=== PATIENT | female | born 1975 | race Caucasian/White ===

== ENCOUNTER 2018-11-03 09:28 | Emergency (ER) | payer SELFPAY ==
[2018-11-03 10:17] LABS: Absolute Lymphocytes (CBC) 0.1 K/uL (0.7-4.9); Absolute Monocytes 0.2 K/uL (0.1-1.3); Absolute Neutrophil 3.7 K/uL (1.8-8.0); Basophils % 0.1 % (0-1.3); Hematocrit 36.1 % (36.0-45.0); Lymphocytes % 2.5 % (15.3-44.8); MPV 8.7 fL (7.6-11.3); Monocytes % 5.6 % (3.3-12.3); RBC Red Blood Cell Count 4.29 M/uL (3.86-4.86)
[2018-11-03] MEDS ORDERED: NA CHLORIDE 0.9% 1,000 ML ONE (10:19)
[2018-11-03] MEDS ORDERED: MEPERIDINE HCL 25 MG/0.5 ML ONE (10:19)
[2018-11-03] MEDS ORDERED: ONDANSETRON 4 MG/2 ML VIAL ONE (10:19)
[2018-11-03 10:33] LABS: Urine Blood NEGATIVE (NEG); Urine Glucose NEGATIVE (NEG); Urine Protein NEGATIVE (NEG); Urine pH 7.5 (5.0-7.0)
[2018-11-03 10:37] LABS: ALT/SGPT 14 U/L (12-78); AST/SGOT 15 U/L (15-37); Albumin 3.7 g/dL (3.4-5.0); Alkaline Phosphatase 42 U/L (45-117); BUN Blood Urea Nitrogen 14 mg/dL (7-18); Bicarbonate 26 mmol/L (21-32); Bilirubin Direct 0.1 mg/dL (0-0.2); Bilirubin Total 0.3 mg/dL (0.2-1.0); Glucose Level 112 mg/dL (74-106); Lipase 183 U/L (73-393); Potassium 3.8 mmol/L (3.5-5.1); Protein, Total 7.1 g/dL (6.4-8.2); Sodium Level 135 mmol/L (136-145)
[2018-11-03 10:59] LABS: Urine Bacteria >50 /HPF (<20); Urine Culture Reflex Order REFLEXED; Urine RBC NONE SEEN /HPF (NONE SEEN)
[2018-11-03 11:32] LABS: Blood Morphology Comment NOT SEEN (NOT SEEN); Platelet Estimate ADEQ; Urine White Blood Cell Casts OK
--- NOTE | 2018-11-03 12:19 | RAD REPORT ---
EXAM DESCRIPTION: CTAbdomen Pelvis W Contrast - 11/03/2018 11:54 am CLINICAL HISTORY: Abdominal pain. ABD PAIN COMPARISON: No comparisons TECHNIQUE: Biphasic CT imaging of the abdomen and pelvis was performed with 100 ml non-ionic IV cont rast. All CT scans are performed using dose optimization technique as appropriate and may include automated exposure control or mA/KV adjustment according to patient size. FINDINGS: The lung bases are clear. The liver, spleen, pancreas, adrenal glands and kidneys are within normal limits. No bowel obstruction, free air, free fluid or abscess. Colon is fluid-filled throughout. The appendix is not identified as a discrete structure, however, no secondary findings of appendicitis are identi fied. No evidence of significant lymphadenopathy. No suspicious bony findings. Mild free fluid is seen in the pelvis with heterogenous uterus. IMPRESSION: A fluid-filled colon is noted which can indicate a mild colitis. Mild pelvic free fluid with heterogenous uterus can be seen in cases of pelvic infection or inflammat ion.
[2018-11-03] MEDS ORDERED: MORPHINE 4 MG/ML SYR ONE ×3 (12:32→15:22)
--- NOTE | 2018-11-03 13:01 | ER ---
Nurse's Notes [facility] Name: Lina Gibson Age: 43 yrs Sex: Female : 1975 Arrival Date: 11/03/2018 Time: 09:32 Bed 16 Private MD: Diagnosis: Left sided colitis without complications Presentation: 11/03 09:40 Presenting complaint: Patient states: Diarrhea and abd cramping that began last night. ss Pt reports this morning it is worse and now she has a headache and nausea. Transition of care: patient was not received from another setting of care. Onset of symptoms was November 02, 2018. Risk Assessment: Do you want to hurt yourself or someone else? Patient reports no desire to harm self or others. Initial Sepsis Screen: Does the patient meet any 2 criteria? No. Patient's initial sepsis screen is negative. Does the patient have a suspected source of infection? No. Patient's initial sepsis screen is negative. Care prior to arrival: None. 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 - Social history:: Smoking status: Patient/guardian denies using tobacco. - Ebola Screening: : Patient denies exposure to infectious person Patient denies travel to an Ebola-affected area in the 21 days before illness onset. - Family history:: not pertinent. - Hospitalizations: : No recent hospitalization is reported. Screenin:00 Abuse screen: Denies threats or abuse. Nutritional screening: No deficits noted. aa5 Tuberculosis screening: No symptoms or risk factors identified. Fall Risk None identified. Assessment: 09:50 General: Appears uncomfortable, Behavior is calm, cooperative. Pain: Complains of pain aa5 in umbilical area and left lower quadrant Pain does not radiate. Pain currently is 9 out of 10 on a pain scale. Quality of pain is described as crampy, Pain began 1 day ago. Is continuous. Neuro: Level of Consciousness is awake, alert, obeys commands, Oriented to person, place, time, situation. Cardiovascular: Heart tones S1 S2 present Rhythm is regular. Respiratory: Airway is patent Respiratory effort is even, unlabored, Respiratory pattern is regular, symmetrical. GI: Abdomen is round non-distended, Bowel sounds present X 4 quads. Abd is soft X 4 quads Abdomen is tender to palpation in left lower quadrant Reports diarrhea, nausea, Patient currently denies bloody stool, vomiting. : No signs and/or symptoms were reported regarding the genitourinary system. EENT: No signs and/or symptoms were reported regarding the EENT system. Derm: Skin is pink, warm \T\ dry. Musculoskeletal: Range of motion: intact in all extremities. 10:10 Reassessment: Patient is alert, oriented x 3, equal unlabored respirations, skin aa5 warm/dry/pink. Pt notified of wait time for lab results and pt currently sitting up in bed drinking CT oral contrast. . 10:25 Reassessment: Pt finished CT oral contrast, CT notified. . aa5 10:29 Reassessment: Patient is alert, oriented x 3, equal unlabored respirations, skin aa5 warm/dry/pink. Patient states feeling better. Pt currently denies nausea and rates pain 2/10 on a pain scale. . General: Appears comfortable. 11:50 Reassessment: Patient is alert, oriented x 3, equal unlabored respirations, skin aa5 warm/dry/pink. Pt taken to CT . 12:20 Reassessment: Patient is alert, oriented x 3, equal unlabored respirations, skin aa5 warm/dry/pink. General: Appears uncomfortable. Pain: Pain currently is 7 out of 10 on a pain scale. 12:35 Reassessment: Patient is alert, oriented x 3, equal unlabored respirations, skin aa5 warm/dry/pink. 12:35 Pain: Pain currently is 2 out of 10 on a pain scale. aa5 13:40 Reassessment: Patient is alert, oriented x 3, equal unlabored respirations, skin aa5 warm/dry/pink. Patient states feeling better. Vital Signs: 09:41 BP 134 / 73; Pulse 101; Resp 15; Temp 98.2; Pulse Ox 99% on R/A; Weight 63.5 kg; Height ss 5 ft. 4 in. (162.56 cm); Pain 9/10; 10:07 BP 119 / 75; Pulse 82; Resp 16 S; Pulse Ox 100% on R/A; aa5 12:20 BP 117 / 68; Pulse 87; Resp 16 S; Pulse Ox 98% on R/A; Pain 7/10; aa5 13:00 BP 111 / 68; Pulse 96; Resp 18 S; Pulse Ox 98% on R/A; aa5 14:00 BP 105 / 61; Pulse 88; Resp 16 S; Pulse Ox 98% on R/A; aa5 09:41 Body Mass Index 24.03 (63.50 kg, 162.56 cm) ED Course: 09:32 Patient arrived in ED. mr 09:41 Triage completed. ss 09:41 Arm band placed on right wrist. 09:50 Patient has correct armband on for positive identification. Placed in gown. Bed in low aa5 position. Call light in reach. Side rails up X2. Adult w/ patient. 09:51 Alexander Casillas MD is Attending Physician. rn 09:57 Cristel Landa RN is Primary Nurse. aa5 10:05 Initial lab(s) drawn, by ia, sent to lab. Inserted saline lock: 20 gauge in right aa5 antecubital area, using aseptic technique. Blood collected. 10:12 Urine collected: clean catch specimen, clear. dh3 11:56 CT Abd/Pelvis - PO and IV Contrast In Process Unspecified. EDMS 14:00 No provider procedures requiring assistance completed. IV discontinued, intact, ch bleeding controlled, No redness/swelling at site. Pressure dressing applied. 14:15 Report given to Vickie Tejada RN. [facility] 15:00 Primary Nurse role handed off by Cristel Landa RN 15:00 Vickie Tejada, RN is Primary Nurse. ch Administered Medications: 10:07 Drug: Zofran 4 mg Route: IVP; Site: right antecubital; aa5 10:15 Follow up: Response: No adverse reaction aa5 10:07 Drug: NS 0.9% 1000 ml Route: IV; Rate: 1000 ml; Site: right antecubital; aa5 11:00 Follow up: IV Status: Completed infusion; IV Intake: 1000ml aa5 10:09 Drug: Demerol 25 mg Route: IVP; Site: right antecubital; aa5 10:15 Follow up: Response: No adverse reaction aa5 12:23 Drug: morphine 4 mg Route: IVP; Site: right antecubital; aa5 12:35 Follow up: Response: No adverse reaction; Pain is decreased aa5 13:10 Drug: Flagyl 500 mg Volume: 100 ml; Route: IVPB; Rate: 200 ml/hr; Infused Over: 30 aa5 mins; Site: right antecubital; 13:40 Follow up: Response: No adverse reaction; IV Status: Completed infusion aa5 14:53 Follow up: IV Status: Completed infusion ch 14:53 Follow up: IV Intake: 100ml ch 13:45 Drug: Cipro 400 mg Volume: 200 ml; Route: IVPB; Infused Over: 60 mins; Site: right aa5 antecubital; 14:00 Follow up: Response: No adverse reaction aa5 14:53 Follow up: IV Status: Completed infusion; IV Intake: 200ml ch 14:53 Drug: morphine 4 mg Route: IVP; Site: left antecubital; ch 15:00 Follow up: Response: No adverse reaction; Marked relief of symptoms ch Intake: 11:00 IV: 1000ml; Total: 1000ml. aa5 14:53 IV: 200ml; Total: 1200ml. ch 14:53 IV: 100ml; Total: 1300ml. Outcome: 13:00 Discharge ordered by . rn 15:10 Discharged to home ambulatory, with family. 15:10 Condition: improved 15:10 Discharge instructions given to patient, family, Instructed on discharge instructions, follow up and referral plans. medication usage, Demonstrated understanding of instructions, follow-up care, medications. 15:19 Patient left the ED. Signatures: Dispatcher [employer] EDMS Vickie Tejada, RN NENA Nikki Whitehead Roman, MD MD rn Calderon, Audri RN Janette Pace RN RN Amanda Chi [facility]
--- NOTE | 2018-11-03 13:01 | EDPHYS ---
Physician Documentation [facility] Name: Lina Gibson Age: 43 yrs Sex: Female : 1975 Arrival Date: 11/03/2018 Time: 09:32 Bed 16 Private MD: ED Physician Alexander Casillas HPI: 11/03 10:05 This 43 yrs old Female presents to ER via Ambulatory with complaints of rn Abdominal Pain, Back Pain, Headache. 10:05 This 43 yrs old Female presents to ER via Ambulatory with complaints of rn Abdominal Pain, diarrhea. 10:05 The patient presents with abdominal pain that is diffuse. Onset: The symptoms/episode rn began/occurred 2 day(s) ago. The symptoms do not radiate. Associated signs and symptoms: Pertinent positives: diarrhea, nausea, Pertinent negatives: dysuria, fever, shortness of breath, vaginal discharge. The symptoms are described as achy, crampy. Modifying factors: The symptoms are alleviated by nothing, the symptoms are aggravated by touching the area. Severity of pain: At its worst the pain was moderate in the emergency department the pain is unchanged. The patient has not experienced similar symptoms in the past. The patient has not recently seen a physician. 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 - Social history:: Smoking status: Patient/guardian denies using tobacco. - Ebola Screening: : Patient denies exposure to infectious person Patient denies travel to an Ebola-affected area in the 21 days before illness onset. - Family history:: not pertinent. - Hospitalizations: : No recent hospitalization is reported. ROS: 10:05 Constitutional: Negative for fever, chills, and weight loss, Eyes: Negative for injury, rn pain, redness, and discharge, Neck: Negative for injury, pain, and swelling, Cardiovascular: Negative for chest pain, palpitations, and edema, Respiratory: Negative for shortness of breath, cough, wheezing, and pleuritic chest pain, Abdomen/GI: + abd pain and diarrhea, + nausea, no blood in stool MS/Extremity: Negative for injury and deformity, Skin: Negative for injury, rash, and discoloration, Neuro: + generalized weakness Exam: 10:05 Constitutional: This is a well developed, well nourished patient who is awake, alert, rn appears uncomfortable, holding empty emesis bag Head/Face: Normocephalic, atraumatic. Eyes: Pupils equal round and reactive to light, extra-ocular motions intact. Lids and lashes normal. Conjunctiva and sclera are non-icteric and not injected. Cornea within normal limits. Periorbital areas with no swelling, redness, or edema. ENT: dry MM Respiratory: No increased work of breathing, no retractions or nasal flaring. Abdomen/GI: soft, tender LUQ and LLQ, no rebound Skin: Warm, dry MS/ Extremity: Pulses equal, no cyanosis. Neurovascular intact. Full, normal range of motion. Equal circumference. Neuro: Awake and alert, GCS 15, oriented to person, place, time, and situation. Cranial nerves II-XII grossly intact. Motor strength 5/5 in all extremities. Sensory grossly intact. Cerebellar exam normal. Vital Signs: 09:41 BP 134 / 73; Pulse 101; Resp 15; Temp 98.2; Pulse Ox 99% on R/A; Weight 63.5 kg; Height ss 5 ft. 4 in. (162.56 cm); Pain 9/10; 10:07 BP 119 / 75; Pulse 82; Resp 16 S; Pulse Ox 100% on R/A; aa5 12:20 BP 117 / 68; Pulse 87; Resp 16 S; Pulse Ox 98% on R/A; Pain 7/10; aa5 13:00 BP 111 / 68; Pulse 96; Resp 18 S; Pulse Ox 98% on R/A; aa5 14:00 BP 105 / 61; Pulse 88; Resp 16 S; Pulse Ox 98% on R/A; aa5 09:41 Body Mass Index 24.03 (63.50 kg, 162.56 cm) ss MDM: 09:51 Patient medically screened. rn 12:58 Differential diagnosis: appendicitis, diverticulitis, non-specific abd pain, colitis. rn Data reviewed: vital signs, nurses notes, lab test result(s), radiologic studies, CT scan, and as a result, I will discharge patient. Counseling: I had a detailed discussion with the patient and/or guardian regarding: the historical points, exam findings, and any diagnostic results supporting the discharge/admit diagnosis, lab results, radiology results, the need for outpatient follow up, to return to the emergency department if symptoms worsen or persist or if there are any questions or concerns that arise at home. Response to treatment: the patient's symptoms have markedly improved after treatment, and as a result, I will discharge patient. Special discussion: Based on the patient's Hx, exam, and Dx evaluation, there is no indication for emergent surgery or inpatient Tx. It is understood by the patient/guardian that if the Sx's persist or worsen they need to return immediately for re-evaluation. I discussed with the patient/guardian in detail that at this point there is no indication for admission to the hospital. It is understood, however, that if the symptoms persist or worsen the patient needs to return immediately for re-evaluation. 11/03 09:58 Order name: Basic Metabolic Panel; Complete Time: 10:54 11/03 09:58 Order name: CBC with Diff; Complete Time: 12:12 11/03 09:58 Order name: Hepatic Function; Complete Time: 10:54 rn 11/03 09:58 Order name: Lipase; Complete Time: 10:54 11/03 10:10 Order name: Urine Dipstick--Ancillary (enter results); Complete Time: 10:54 11/03 10:10 Order name: Urine Microscopic Only; Complete Time: 11:07 eb 11/03 09:58 Order name: CT Abd/Pelvis - PO and IV Contrast; Complete Time: 12:20 rn 11/03 10:10 Order name: Urine --Ancillary (enter results); Complete Time: 10:54 11/03 10:21 Order name: CBC Smear Scan; Complete Time: 12:12 EDMS 11/03 11:02 Order name: Urine Culture EDWI 11/03 09:58 Order name: IV Saline Lock; Complete Time: 10:02 rn 11/03 09:58 Order name: Labs collected and sent; Complete Time: 10:02 rn 11/03 09:58 Order name: Urine Test (obtain specimen); Complete Time: 10:01 rn 11/03 09:58 Order name: Urine Dipstick-Ancillary (obtain specimen); Complete Time: 10:01 rn Administered Medications: 10:07 Drug: Zofran 4 mg Route: IVP; Site: right antecubital; aa5 10:15 Follow up: Response: No adverse reaction aa5 10:07 Drug: NS 0.9% 1000 ml Route: IV; Rate: 1000 ml; Site: right antecubital; aa5 11:00 Follow up: IV Status: Completed infusion; IV Intake: 1000ml aa5 10:09 Drug: Demerol 25 mg Route: IVP; Site: right antecubital; aa5 10:15 Follow up: Response: No adverse reaction aa5 12:23 Drug: morphine 4 mg Route: IVP; Site: right antecubital; aa5 12:35 Follow up: Response: No adverse reaction; Pain is decreased aa5 13:10 Drug: Flagyl 500 mg Volume: 100 ml; Route: IVPB; Rate: 200 ml/hr; Infused Over: 30 aa5 mins; Site: right antecubital; 13:40 Follow up: Response: No adverse reaction; IV Status: Completed infusion [facility] 14:53 Follow up: IV Status: Completed infusion 14:53 Follow up: IV Intake: 100ml 13:45 Drug: Cipro 400 mg Volume: 200 ml; Route: IVPB; Infused Over: 60 mins; Site: right aa5 antecubital; 14:00 Follow up: Response: No adverse reaction [facility] 14:53 Follow up: IV Status: Completed infusion; IV Intake: 200ml 14:53 Drug: morphine 4 mg Route: IVP; Site: left antecubital; 15:00 Follow up: Response: No adverse reaction; Marked relief of symptoms Disposition: 11/03/18 13:00 Discharged to Home. Impression: Left sided colitis without complications. - Condition is Stable. - Discharge Instructions: Colitis. - Prescriptions for Zofran ODT 4 mg Oral tablet,disintegrating - place 1 tablet by TRANSLINGUAL route every 8 hours As needed; 20 tablet. Flagyl 500 mg Oral Tablet - take 1 tablet by ORAL route every 8 hours for 10 days; 30 tablet. Tylenol- Codeine #3 300-30 mg Oral Tablet - take 1 tablet by ORAL route every 6 hours As needed; 20 tablet. Cipro 500 mg Oral Tablet - take 1 tablet by ORAL route every 12 hours for 10 days; 20 tablet. - Work release form, Medication Reconciliation Form, Thank You Letter, Antibiotic Education, Prescription Opioid Use form. - Follow up: Private Physician; When: As needed; Reason: Recheck today's complaints, Re-evaluation by your physician. - Problem is new. - Symptoms have improved. Signatures: Dispatcher [employer] Vickie Mendoza, RN RN Alexander Casillas MD MD rn Calderon, Audri, RN RN aa5 Janette Lan RN RN ss Corrections: (The following items were deleted from the chart) 15:19 13:00 11/03/2018 13:00 Discharged to Home. Impression: Left sided colitis without ch complications. Condition is Stable. Forms are Medication Reconciliation Form, Thank You Letter, Antibiotic Education, Prescription Opioid Use. Follow up: Private Physician; When: As needed; Reason: Recheck today's complaints, Re-evaluation by your physician. Problem is new. Symptoms have improved. rn
[2018-11-03] MEDS ORDERED: CIPROFLOXACIN 400mg IV 400 MG/200 ML BAG IV ONE (13:18)
[2018-11-03] MEDS ORDERED: METRONIDAZOLE 500mg IVPB 500 MG/100 ML BAG IV ONE (13:18)
== END 2018-11-03 15:19 | disposition home or self-care (01) ==
LOC: ER 09:28
DX: K52.9 Noninfective gastroenteritis and colitis, unspecified (principal)
CPT/HCPCS: 36415; 74177; 80048; 80076; 81003; 81015; 81025; 83690; 85025; 87086; 87088; 99284; J0744; J2175; J2405; J7030; Q9967

== ENCOUNTER 2019-05-06 17:17 | Emergency (ER) | payer SELFPAY ==
--- NOTE | 2019-05-06 19:15 | EDPHYS ---
Physician Documentation [facility] Name: Lina Gibson Age: 44 yrs Sex: Female : 1975 Arrival Date: 05/06/2019 Time: 17:19 Bed 11 Private MD: ED Physician Cesario Shepherd HPI: 05/06 19:08 This 44 yrs old Female presents to ER via Ambulatory with complaints of jmm Toothache. 19:08 The patient presents with pain. Onset: The symptoms/episode began/occurred gradually, 2 jmm week(s) ago. Duration: The symptoms are continuous. Modifying factors: The symptoms are alleviated by nothing, the symptoms are aggravated by nothing. Associated signs and symptoms: Pertinent negatives: fever. This is a 44 year old female with no chronic medical conditions that presents to the ED with complaints of toothache which has worsened over the past 2 weeks. Patient states the pain now radiates up her right jaw. . 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 - Social history:: Smoking status: Patient/guardian denies using tobacco. - Ebola Screening: : Patient negative for fever greater than or equal to 101.5 degrees Fahrenheit, and additional compatible Ebola Virus Disease symptoms Patient denies exposure to infectious person Patient denies travel to an Ebola-affected area in the 21 days before illness onset No symptoms or risks identified at this time. ROS: 19:08 Constitutional: Negative for fever, chills, and weight loss, Cardiovascular: Negative jmm for chest pain, palpitations, and edema, Respiratory: Negative for shortness of breath, cough, wheezing, and pleuritic chest pain. 19:08 ENT: Positive for dental pain. 19:08 All other systems are negative. Exam: 19:08 Constitutional: This is a well developed, well nourished patient who is awake, alert, jmm and in no acute distress. Head/Face: atraumatic. Eyes: EOMI, no conjunctival erythema appreciated ENT: Moist Mucus Membranes Neck: Trachea midline, Supple Chest/axilla: Normal chest wall appearance and motion. Cardiovascular: Regular rate and rhythm. No edema appreciated Respiratory: Normal respirations, no respiratory distress appreciated Abdomen/GI: Non distended, soft Back: Normal ROM Skin: General appearance color normal MS/ Extremity: Moves all extremities, no obvious deformities appreciated, no edema noted to the lower extremities Neuro: Awake and alert, normal gait Psych: Behavior is normal, Mood is normal, Patient is cooperative and pleasant 19:08 Head/face: 19:08 ENT: Dental exam: dental caries, that is severe, specifically in the lower right first bicuspid (#28) and lower right first molar (#30). Vital Signs: 17:47 BP 149 / 99; Pulse 88; Resp 18; Temp 98.1; Pulse Ox 100% on R/A; Weight 65.77 kg; sg Height 5 ft. 5 in. (165.10 cm); Pain 10/10; 17:47 Body Mass Index 24.13 (65.77 kg, 165.10 cm) sg MDM: 18:57 Patient medically screened. [facility] 19:08 Data reviewed: vital signs, nurses notes. Counseling: I had a detailed discussion with [facility] the patient and/or guardian regarding: the historical points, exam findings, and any diagnostic results supporting the discharge/admit diagnosis, the need for outpatient follow up, to return to the emergency department if symptoms worsen or persist or if there are any questions or concerns that arise at home. ED course: No submandibular swelling appreciated. I do not suspect ludwigs. Patient is advised to follow up with Dentist. Patient is given strict return precautions. Patient understood and agrees with the plan of care. . Administered Medications: No medications were administered Disposition: 05/07 08:53 Co-signature as Attending Physician, Cesario Shepherd MD I agree with the assessment and kdr plan of care. Disposition: 05/06/19 19:14 Discharged to Home. Impression: Dental caries. - Condition is Stable. - Discharge Instructions: Dental Pain. - Prescriptions for Amoxicillin 875 mg Oral Tablet - take 1 tablet by ORAL route every 12 hours for 10 days; 20 tablet. Ultracet 37.5- 325 mg Oral Tablet - take 1 tablet by ORAL route every 6 hours - for up to 5 days; do not exceed 8 tablets per day.; 12 tablet. - Medication Reconciliation Form, Thank You Letter, Antibiotic Education, Prescription Opioid Use form. - Follow up: Private Physician; When: 2 - 3 days; Reason: Recheck today's complaints, Continuance of care, Re-evaluation by your physician. Signatures: Trey Garcia RN RN sg Rittger, Kevin, MD MD kdr Mickail, Joel, PA PA jmm Corrections: (The following items were deleted from the chart) 05/06 19:39 19:14 05/06/2019 19:14 Discharged to Home. Impression: Dental caries. Condition is sg Stable. Forms are Medication Reconciliation Form, Thank You Letter, Antibiotic Education, Prescription Opioid Use. Follow up: Private Physician; When: 2 - 3 days; Reason: Recheck today's complaints, Continuance of care, Re-evaluation by your physician. rossy
--- NOTE | 2019-05-06 19:15 | ER ---
Nurse's Notes [facility] Name: Lina Gibson Age: 44 yrs Sex: Female : 1975 Arrival Date: 05/06/2019 Time: 17:19 Bed 11 Private MD: Diagnosis: Dental caries Presentation: 05/06 17:48 Presenting complaint: Patient states: right sided jaw pain, upper and lower at times, sg unsure if the pain is on top or bottom per patient, pain affects entire right side of jaw and face, reports having tied to wait for tomorrow to schedule a dental appointment but due to the pain was unable to wait. Transition of care: patient was not received from another setting of care. Onset of symptoms was May 06, 2019. Risk Assessment: Do you want to hurt yourself or someone else? Patient reports no desire to harm self or others. Initial Sepsis Screen: Does the patient meet any 2 criteria? No. Patient's initial sepsis screen is negative. Does the patient have a suspected source of infection? No. Patient's initial sepsis screen is negative. Care prior to arrival: None. 17:48 Method Of Arrival: Ambulatory sg 17:48 Acuity: JOVANNI 4 sg Triage Assessment: 18:40 EENT: Reports pain. 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 - Social history:: Smoking status: Patient/guardian denies using tobacco. - Ebola Screening: : Patient negative for fever greater than or equal to 101.5 degrees Fahrenheit, and additional compatible Ebola Virus Disease symptoms Patient denies exposure to infectious person Patient denies travel to an Ebola-affected area in the 21 days before illness onset No symptoms or risks identified at this time. Screenin:55 Abuse screen: Denies threats or abuse. Denies injuries from another. Nutritional iw screening: No deficits noted. Tuberculosis screening: No symptoms or risk factors identified. Fall Risk None identified. Assessment: 18:54 General: Appears in no apparent distress. comfortable, Behavior is calm, cooperative. iw Pain: Complains of pain in right cheek and right jaw. Neuro: Level of Consciousness is awake, alert, obeys commands, Oriented to person, place, time, situation. Cardiovascular: Capillary refill < 3 seconds in bilateral fingers Patient's skin is warm and dry. EENT: Derm: Skin is intact, is healthy with good turgor. Musculoskeletal: Range of motion: intact in all extremities. 19:30 Reassessment: Patient appears in no apparent distress at this time. pt sitting in sg recliner at this time, eyes closed, resp even and unlabored, pt educated on discharge instructions, pt to be dc to home. Vital Signs: 17:47 BP 149 / 99; Pulse 88; Resp 18; Temp 98.1; Pulse Ox 100% on R/A; Weight 65.77 kg; sg Height 5 ft. 5 in. (165.10 cm); Pain 10/10; 17:47 Body Mass Index 24.13 (65.77 kg, 165.10 cm) ED Course: 17:19 Patient arrived in ED. mr 17:49 Triage completed. sg 17:49 Arm band placed on. sg 18:41 Emilia Chou, RN is Primary Nurse. iw 18:42 Stanton Selby PA is PHCP. [facility] 18:43 Cesario Shepherd MD is Attending Physician. [facility] 18:50 Patient has correct armband on for positive identification. Bed in low position. Call sg light in reach. Pulse ox on. NIBP on. 18:55 No provider procedures requiring assistance completed. Patient did not have IV access iw during this emergency room visit. Administered Medications: No medications were administered Outcome: 19:14 Discharge ordered by MD. [facility] 19:30 Discharged to home ambulatory, with family. sg 19:30 Condition: good 19:30 Discharge instructions given to patient, Instructed on discharge instructions, follow up and referral plans. no drinking with medication, no driving heavy equipment, medication usage, safety practices, Demonstrated understanding of instructions, follow-up care, medications, Prescriptions given X 2. 19:39 Patient left the ED. sg Signatures: Trey Garcia RN RN Stanton Selby PA PA jmm Rivera, Mary mr Emilia Chou RN RN iw
[2019-05-06 22:41] VITALS: BP 149/99; TEMP 98.1; O2SAT 100
== END 2019-05-06 19:39 | disposition home or self-care (01) ==
LOC: ER 17:17
DX: K02.9 Dental caries, unspecified (principal)
CPT/HCPCS: 99283

== ENCOUNTER 2020-03-23 20:34 | Emergency (ER) | payer SELFPAY ==
[2020-03-23] MEDS ORDERED: NA CHLORIDE 0.9% 1,000 ML ONE (21:20)
[2020-03-23] MEDS ORDERED: MORPHINE 2 MG/ML SYR ONE (21:20)
[2020-03-23] MEDS ORDERED: FAMOTIDINE 20 MG/2 ML VIAL IV ONE (21:20)
[2020-03-23] MEDS ORDERED: ONDANSETRON 4 MG/2 ML VIAL ONE (21:20)
[2020-03-23 21:21] LABS: Absolute Lymphocytes (CBC) 1.3 K/uL (0.7-4.9); Basophils % 0.9 % (0-1.3); Hematocrit 29.9 % (36.0-45.0); Lymphocytes % 19.4 % (15.3-44.8); MPV 8.2 fL (7.6-11.3); RBC Red Blood Cell Count 4.11 M/uL (3.86-4.86)
[2020-03-23 21:28] LABS: ALT/SGPT 13 U/L (12-78); AST/SGOT 13 U/L (15-37); Albumin 3.5 g/dL (3.4-5.0); Alkaline Phosphatase 68 U/L (45-117); BUN Blood Urea Nitrogen 8 mg/dL (7-18); Bicarbonate 26 mmol/L (21-32); Bilirubin Direct < 0.1 mg/dL (0-0.2); Bilirubin Total 0.3 mg/dL (0.2-1.0); Glucose Level 84 mg/dL (74-106); Lipase 100 U/L (73-393); Potassium 3.8 mmol/L (3.5-5.1); Protein, Total 7.1 g/dL (6.4-8.2); Sodium Level 137 mmol/L (136-145)
--- NOTE | 2020-03-23 23:26 | EDPHYS ---
Physician Documentation [facility] Name: Lina Gibson Age: 44 yrs Sex: Female : 1975 Arrival Date: 03/23/2020 Time: 20:35 Bed 4 Private MD: ED Physician Jasbir Sevilla HPI: 03/23 21:10 This 44 yrs old Female presents to ER via Ambulatory with complaints of cp Abdominal Pain. 21:10 The patient presents with abdominal pain in the epigastric area. cp 21:10 Onset: The symptoms/episode began/occurred 2 day(s) ago, and became worse today. cp 21:10 The symptoms do not radiate. Associated signs and symptoms: Pertinent positives: cp nausea, Pertinent negatives: chest pain, constipation, diarrhea, dysuria, fever, palpitations, vomiting. The symptoms are described as sharp. Modifying factors: the symptoms are aggravated by pressure. 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 - Social history:: Smoking status: Patient denies any tobacco usage or history of. ROS: 21:15 Constitutional: Negative for body aches, chills, fever, poor PO intake. cp 21:15 Eyes: Negative for injury, pain, redness, and discharge. cp 21:15 ENT: Negative for ear pain, sore throat, difficulty swallowing, difficulty handling secretions. 21:15 Cardiovascular: Negative for chest pain, edema, palpitations. 21:15 Respiratory: Negative for cough, shortness of breath, wheezing. 21:15 Abdomen/GI: Positive for abdominal pain, nausea, of the epigastric area, Negative for vomiting, diarrhea, constipation, anorexia, dysphagia, black/tarry stool, rectal bleeding. 21:15 Back: Negative for radiated pain. 21:15 : Negative for urinary symptoms. 21:15 Neuro: Negative for altered mental status, headache, syncope, weakness. 21:15 All other systems are negative. Exam: 21:25 Constitutional: The patient appears in no acute distress, alert, awake, cp non-diaphoretic, non-toxic, well developed, well nourished, uncomfortable. 21:25 Head/Face: Normocephalic, atraumatic. cp 21:25 Eyes: Periorbital structures: appear normal, Conjunctiva: normal, no exudate, no injection, Sclera: no appreciated abnormality, Lids and lashes: appear normal, bilaterally. 21:25 ENT: External ear(s): are unremarkable, Nose: is normal, Mouth: Lips: moist, Oral mucosa: pink and intact, moist, Posterior pharynx: Airway: no evidence of obstruction, patent. 21:25 Chest/axilla: Inspection: normal, Palpation: is normal, no crepitus, no tenderness. 21:25 Cardiovascular: Rate: normal, Rhythm: regular. 21:25 Respiratory: the patient does not display signs of respiratory distress, Respirations: normal, no use of accessory muscles, no retractions, labored breathing, is not present, Breath sounds: are clear throughout, no decreased breath sounds. 21:25 Abdomen/GI: Inspection: abdomen appears normal, Bowel sounds: active, all quadrants, Palpation: soft, in all quadrants, moderate abdominal tenderness, in the epigastric area, rebound tenderness, is not appreciated, voluntary guarding, is elicited in the epigastric area. 21:25 Back: CVA tenderness, is absent. 21:25 Skin: no rash present. 21:25 Neuro: Orientation: to person, place \T\ time. Mentation: is normal, Motor: moves all fours, strength is normal. Vital Signs: 20:42 BP 122 / 77; Pulse 81; Resp 17; Temp 97.8; Pulse Ox 100% ; Weight 74.84 kg; Height 5 ll1 ft. 4 in. (162.56 cm); Pain 7/10; 21:45 BP 125 / 85; Pulse 80; Resp 18; Pulse Ox 100% on R/A; rv 22:11 Pain 1/10; rv 23:00 BP 118 / 84; Pulse 78; Resp 18; Pulse Ox 99% on R/A; wh 20:42 Body Mass Index 28.32 (74.84 kg, 162.56 cm) ll1 MDM: 20:51 Patient medically screened. cp 21:00 Differential diagnosis: cholecystitis, Cholelithiasis, gastroesophageal reflux disease, cp GI Bleed, non-specific abd pain, pancreatitis, Peptic Ulcer Disease, Perf. Duodenal Ulcer, Perf. Gastric Ulcer. 23:25 Data reviewed: vital signs, nurses notes, lab test result(s), radiologic studies, CT cp scan, ultrasound. 23:25 Counseling: I had a detailed discussion with the patient and/or guardian regarding: the cp historical points, exam findings, and any diagnostic results supporting the discharge/admit diagnosis, lab results, radiology results, the need for outpatient follow up, a family practitioner, to return to the emergency department if symptoms worsen or persist or if there are any questions or concerns that arise at home. Response to treatment: the patient's symptoms have markedly improved after treatment, VSS. Pain and nausea improved. Will discharge to home for continued monitoring. Special discussion: Based on the patient's Hx, exam, and Dx evaluation, there is no indication for emergent surgery or inpatient Tx. It is understood by the patient/guardian that if the Sx's persist or worsen they need to return immediately for re-evaluation. 03/23 20:50 Order name: Basic Metabolic Panel; Complete Time: 21:33 rv 03/23 21:34 Interpretation: Normal except: GFR 87; CA 10.2. cp 03/23 20:50 Order name: CBC with Diff; Complete Time: 21:28 rv 03/23 21:28 Interpretation: Normal except: HGB 9.9; HCT 29.9; MCV 72.8; MCH 24.2; RDW 18.1. cp 03/23 20:50 Order name: Hepatic Function; Complete Time: 21:33 rv 03/23 21:34 Interpretation: Normal except: AST 13; GLOB 3.6; A/G 1.0. cp 03/23 20:50 Order name: Lipase; Complete Time: 21:33 rv 03/23 21:04 Order name: US Abdomen Limited: RUQ/epigastric area cp 03/23 21:41 Order name: CT Abd/Pelvis - IV Contrast Only cp 03/23 20:50 Order name: IV Saline Lock; Complete Time: 20:57 rv 03/23 20:50 Order name: Labs collected and sent; Complete Time: 20:57 rv 03/23 21:04 Order name: NPO; Complete Time: 21:15 cp Administered Medications: 21:12 Drug: Pepcid 20 mg Route: IVP; Site: right antecubital; rv 22:12 Follow up: Response: No adverse reaction rv 21:12 Drug: morphine 2 mg Route: IVP; Site: right antecubital; rv 22:11 Follow up: Pain 06/08 Adult; Response: No adverse reaction; Marked relief of symptoms; rv Pain is decreased; RASS: Alert and Calm (0) 21:13 Drug: Zofran (Ondansetron) 4 mg Route: IVP; Site: right antecubital; rv 22:12 Follow up: Response: No adverse reaction rv 21:14 Drug: NS 0.9% 1000 ml Route: IV; Rate: 1 bolus; Site: right antecubital; rv 22:12 Follow up: IV Status: Completed infusion; IV Intake: 1000ml rv Disposition: 03/24 00:50 Co-signature as Attending Physician, Jasbir Sevilla MD. [email or web address] Disposition: 03/23/20 23:26 Discharged to Home. Impression: Epigastric pain. - Condition is Stable. - Discharge Instructions: Abdominal Pain, Adult. - Prescriptions for Protonix 40 mg Oral Tablet - take 1 tablet by ORAL route once daily; 30 tablet. Zofran 4 mg Oral Tablet - take 1 tablet by ORAL route every 12 hours As needed; 20 tablet. - Medication Reconciliation Form, Thank You Letter, Antibiotic Education, Prescription Opioid Use form. - Follow up: Private Physician; When: 1 - 2 days; Reason: Recheck today's complaints. - Problem is new. - Symptoms have improved. Signatures: Dispatcher [employer] EDMS Eddie Garcia PA PA cp Lucas Mustafa Antelmo Sandoval RN RN Yoon Barron RN RN [facility] Jasbir Sevilla MD MD [email or web address] Corrections: (The following items were deleted from the chart) 03/23 21:34 21:34 Normal except: GFR 87. cp cp 23:33 23:26 03/23/2020 23:26 Discharged to Home. Impression: Epigastric pain. Condition is wh Stable. Forms are Medication Reconciliation Form, Thank You Letter, Antibiotic Education, Prescription Opioid Use. Follow up: Private Physician; When: 1 - 2 days; Reason: Recheck today's complaints. Problem is new. Symptoms have improved. cp
--- NOTE | 2020-03-23 23:26 | ER ---
Nurse's Notes [facility] Name: Lina Gibson Age: 44 yrs Sex: Female : 1975 Arrival Date: 03/23/2020 Time: 20:35 Bed 4 Private MD: Diagnosis: Epigastric pain Presentation: 03/23 20:42 Chief complaint: Patient states: Epigastric pain with nausea for 2 days. No fever. ll1 Coronavirus screen: Client denies travel out of the [place] in the last 14 days. At this time, the client does not indicate any symptoms associated with coronavirus-19. Ebola Screen: Patient denies travel to an Ebola-affected area in the 21 days before illness onset. Initial Sepsis Screen: Does the patient meet any 2 criteria? No. Patient's initial sepsis screen is negative. Does the patient have a suspected source of infection? Yes: Acute abdominal pain. Risk Assessment: Do you want to hurt yourself or someone else? Patient reports no desire to harm self or others. Onset of symptoms was March 22, 2020. 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 - Social history:: Smoking status: Patient denies any tobacco usage or history of. Screenin:58 Abuse screen: Denies threats or abuse. Denies injuries from another. Nutritional rv screening: No deficits noted. Tuberculosis screening: No symptoms or risk factors identified. Fall Risk None identified. Assessment: 20:57 General: Appears uncomfortable, Behavior is calm, cooperative. Pain: Complains of pain rv in epigastric area Pain currently is 7 out of 10 on a pain scale. Quality of pain is described as burning. Neuro: Level of Consciousness is awake, alert, obeys commands, Oriented to person, place, time, situation. Cardiovascular: Patient's skin is warm and dry. Respiratory: Airway is patent Respiratory effort is even, unlabored, Breath sounds are clear bilaterally. GI: Bowel sounds present X 4 quads. Abd is soft and non tender X 4 quads. Reports upper abdominal pain, nausea. Derm: Skin is intact. 22:13 Reassessment: Patient denies pain at this time. Patient states feeling better. Patient rv states symptoms have improved. Neuro: Level of Consciousness is awake, alert, obeys commands, Oriented to person, place, time, situation. GI: Patient currently denies abdominal pain, nausea. 23:31 Reassessment: Patient appears in no apparent distress at this time. Patient and/or wh family updated on plan of care and expected duration. Pain level reassessed. Patient is alert, oriented x 3, equal unlabored respirations, skin warm/dry/pink. Vital Signs: 20:42 BP 122 / 77; Pulse 81; Resp 17; Temp 97.8; Pulse Ox 100% ; Weight 74.84 kg; Height 5 ll1 ft. 4 in. (162.56 cm); Pain 7/10; 21:45 BP 125 / 85; Pulse 80; Resp 18; Pulse Ox 100% on R/A; rv 22:11 Pain 1/10; rv 23:00 BP 118 / 84; Pulse 78; Resp 18; Pulse Ox 99% on R/A; wh 20:42 Body Mass Index 28.32 (74.84 kg, 162.56 cm) ll1 ED Course: 20:35 Patient arrived in ED. cl3 20:43 Triage completed. ll1 20:43 Arm band placed on Patient placed in an exam room, on a stretcher. ll1 20:45 Eddie Garcia PA is PHCP. cp 20:45 Jasbir Sevilla MD is Attending Physician. cp 20:50 Antelmo Sandoval, NENA is Primary Nurse. rv 20:57 Initial lab(s) drawn, by wv, sent to lab. Inserted saline lock: 20 gauge in right rv antecubital area, using aseptic technique. Blood collected. 20:58 Patient has correct armband on for positive identification. Pulse ox on. NIBP on. rv 21:46 US Abdomen Limited: RUQ/epigastric area In Process Unspecified. EDMS 21:47 Ultrasound completed. Patient tolerated well. 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 sg3 22:11 No provider procedures requiring assistance completed. rv 22:38 CT Abd/Pelvis - IV Contrast Only In Process Unspecified. EDMS 23:33 IV discontinued, intact, bleeding controlled, No redness/swelling at site. wh Administered Medications: 21:12 Drug: Pepcid 20 mg Route: IVP; Site: right antecubital; rv 22:12 Follow up: Response: No adverse reaction rv 21:12 Drug: morphine 2 mg Route: IVP; Site: right antecubital; rv 22:11 Follow up: Pain 06/08 Adult; Response: No adverse reaction; Marked relief of symptoms; rv Pain is decreased; RASS: Alert and Calm (0) 21:13 Drug: Zofran (Ondansetron) 4 mg Route: IVP; Site: right antecubital; rv 22:12 Follow up: Response: No adverse reaction rv 21:14 Drug: NS 0.9% 1000 ml Route: IV; Rate: 1 bolus; Site: right antecubital; rv 22:12 Follow up: IV Status: Completed infusion; IV Intake: 1000ml rv Intake: 22:12 IV: 1000ml; Total: 1000ml. rv Outcome: 23:26 Discharge ordered by . 23:32 Discharged to home ambulatory. 23:32 Condition: stable 23:32 Discharge instructions given to patient, Instructed on discharge instructions, follow up and referral plans. medication usage, POC Demonstrated understanding of instructions, follow-up care, medications, POC Prescriptions given X 2. 23:33 Patient left the ED. Signatures: Dispatcher [employer] EDMS Eddie Garcia PA PA cp Habalo, Winsy Emperatriz Brian sg3 Antelmo Sandoval RN RN Kushal Oliveros clYoon Luis RN RN ll1
[2020-03-23 23:57] VITALS: TEMP 97.8
[2020-03-24 00:32] VITALS: BP 118/84; O2SAT 99
--- NOTE | 2020-03-24 08:25 | RAD REPORT ---
EXAM DESCRIPTION: US - Abdomen Exam Limited - 03/23/2020 9:46 pm CLINICAL HISTORY: ABD PAIN COMPARISON: No comparisons FINDINGS: The gallbladder demonstrates no gallstones. No pericholecystic fluid or gallbladder wall t hickening. The common bile duct is normal measuring 5 mm. The liver demonstrates no findings of intrahepatic biliary dilatation. IMPRESSION: Unremarkable examination.
--- NOTE | 2020-03-24 10:41 | RAD REPORT ---
EXAM DESCRIPTION: CT Abdomen and Pelvis With Intravenous Contrast CLINICAL HISTORY: The patient is 44 years old and is Female; ABD PAIN TECHNIQUE: Axial computed tomography images of the abdomen and pelvis with intravenous contrast. S agittal and coronal reformatted images were created and reviewed. This CT exam was performed using one or more of the following dose reduction techniques: automated exposure control, adjustment of t he mA and/or kV according to patient size, and/or use of iterative reconstruction technique. COMPARISON: CT of the abdomen and pelvis November 03, 2018 FINDINGS: LUNG BASES: Unremarkable. No mass. No consolidation. ABDOMEN: LIVER: Unremarkable. No mass. GALLBLADDER AND BILE DUCTS: The gallbladder is contracted. PANCREAS: No ductal dilation. No mass. SPLEEN: Unremarkable. ADRENALS: Unremarkable. No mass. KIDNEYS AND URETERS: Unremarkable. The kidneys enhance symmetrically. No obstructing renal or ur eteral calculus is seen. No hydronephrosis or hydroureter. No perinephric fluid or stranding. STOMACH AND BOWEL: The stomach is decompressed. The small bowel is normal in caliber. A moderate amount stool is present throughout colon. There is no mucosal thickening or evidence of bowel obstru ction. PELVIS: APPENDIX: No findings to suggest acute appendicitis. BLADDER: The bladder is well distended. REPRODUCTIVE: Unremarkable as visualized. ABDOMEN and PELVIS: INTRAPERITONEAL SPACE: Unremarkable. No free air. No significant fluid collection. BONES/JOINTS: No acute fracture. SOFT TISSUES: The soft tissues are normal. VASCULATURE: A few calcified phleboliths are present within the pelvis which is likely physiolog ic. The vascular structures are normal in course and caliber. No abdominal aortic aneurysm. LYMPH NODES: Unremarkable. No enlarged lymph nodes. IMPRESSION: No acute findings on this contrasted CT of the abdomen and pelvis to explain the patient 's symptoms. Electronically signed by: Magda Hill MD 03/23/2020 10:51 PM CDT Due to temporary technical issues with the PACS/Fluency reporting system, reports are being signed by the in house radiologist without review as a courtesy to ensure prompt reporting. The interpreting r adiologist is fully responsible for the content of the report.
== END 2020-03-23 23:33 | disposition home or self-care (01) ==
LOC: ER 20:34
DX: R10.13 Epigastric pain (principal)
CPT/HCPCS: 36415; 74177; 76705; 80048; 80076; 83690; 85025; 96361; 96374; 96375; 99284; J2270; J2405; J7030; Q9967

== ENCOUNTER 2021-01-23 22:33 | Emergency (ER) | payer SELFPAY ==
[2021-01-24] MEDS ORDERED: ACETAMINOPHEN 325 MG TABLET ONE (01:46)
[2021-01-24] MEDS ORDERED: NA CHLORIDE 0.9% 500 ML ONE (01:47)
[2021-01-24] MEDS ORDERED: MORPHINE 2 MG/ML SYR ONE (01:47)
[2021-01-24] MEDS ORDERED: ONDANSETRON 4 MG/2 ML VIAL ONE (01:47)
[2021-01-24] MEDS ORDERED: dexAMETHasone 10 MG/ML VIAL ONE (01:47)
--- NOTE | 2021-01-24 05:36 | RAD REPORT ---
EXAM DESCRIPTION: CT - Chest For Pe Angio - 01/24/2021 1:52 am CLINICAL HISTORY: Chest pain. SOB COMPARISON: Ankle Right 3 View dated 10/26/2013 TECHNIQUE: CT angiogram of the pulmonary arteries was performed with MIP. All CT scans are performed using dose optimization technique as appropriate and may include automated exposure control or mA/KV adjustment according to patient size. FINDINGS: No evidence of pulmonary thromboembolism. No acute aortic finding demonstrated. Subtle groundglass opacity bilaterally may indicate mild developing viral infection. No significant pericardial or pleural fluid. No concerning bony finding. IMPRESSION: No evidence of pulmonary thromboembolism.
--- NOTE | 2021-01-24 05:47 | ER ---
Nurse's Notes [facility] Name: Lina Gibson Age: 45 yrs Sex: Female : 1975 Arrival Date: 01/23/2021 Time: 22:38 Bed 7 Private MD: Diagnosis: Pneumonia due to SARS-associated coronavirus Presentation: 01/23 23:15 Chief complaint: Patient states: headache 3-4 days and sore throat, also reports cough, em shortness of breath and occasional chest pain, daughter tested positive for covid last week. Coronavirus screen: Vaccine status: Patient reports receiving the 1st dose of the Covid vaccine. cough unrelated to allergies, difficulty breathing, Client presents with at least one sign or symptom that may indicate coronavirus-19. Standard/surgical mask placed on the client. Provider contacted for isolation considerations. Ebola Screen: Patient negative for fever greater than or equal to 101.5 degrees Fahrenheit, and additional compatible Ebola Virus Disease symptoms Patient denies exposure to infectious person. Patient denies travel to an Ebola-affected area in the 21 days before illness onset. No symptoms or risks identified at this time. Initial Sepsis Screen: Does the patient meet any 2 criteria? HR > 90 bpm. No. Patient's initial sepsis screen is negative. Does the patient have a suspected source of infection? No. Patient's initial sepsis screen is negative. Risk Assessment: Do you want to hurt yourself or someone else? Patient reports no desire to harm self or others. Onset of symptoms was January 23, 2021. 23:15 Method Of Arrival: Ambulatory em 23:15 Acuity: JOVANNI 4 em Triage Assessment: 23:15 General: Appears in no apparent distress. uncomfortable, ill, Behavior is calm, em cooperative. Pain: Complains of pain in head and throat Pain currently is 8 out of 10 on a pain scale. Neuro: Level of Consciousness is awake, alert, Oriented to person, place, time, situation. Cardiovascular: Capillary refill < 3 seconds Patient's skin is warm and dry. Respiratory: Reports cough that is Airway is patent Respiratory effort is even, unlabored, Respiratory pattern is regular, symmetrical, Onset: The symptoms/episode began/occurred 3-4 days. Derm: Skin is intact, is healthy with good turgor, Skin is pink, warm \T\ dry. Musculoskeletal: Capillary refill < 3 seconds, Range of motion: intact in all extremities. Historical: - Allergies: 23:17 No Known Allergies; em - PMHx: 23:17 None; em - PSHx: 23:17 None; em - Immunization history:: Client reports receiving the 1st dose of the Covid vaccine. - Social history:: Smoking status: Reported history of juuling and/or vaping. Screenin:15 Abuse screen: Denies threats or abuse. Nutritional screening: No deficits noted. em Tuberculosis screening: No symptoms or risk factors identified. Fall Risk None identified. Assessment: 01/24 01:28 General: Appears uncomfortable, Behavior is appropriate for age. Pain: Complains of ea pain in generalized pain. Neuro: Level of Consciousness is awake, alert, obeys commands, Oriented to person, place, time. Cardiovascular: Patient's skin is warm and dry. Respiratory: Airway is patent Respiratory effort is even, unlabored, Respiratory pattern is regular, symmetrical. Derm: Skin is pink, warm \T\ dry. 02:15 Reassessment: Patient and/or family updated on plan of care and expected duration. Pain ea level reassessed. Patient is alert, oriented x 3, equal unlabored respirations, skin warm/dry/pink. 03:55 Reassessment: Patient and/or family updated on plan of care and expected duration. Pain ea level reassessed. Patient is alert, oriented x 3, equal unlabored respirations, skin warm/dry/pink. 03:56 Reassessment: Awaiting on CT results. ea 04:50 Reassessment: Patient and/or family updated on plan of care and expected duration. Pain ea level reassessed. Patient is alert, oriented x 3, equal unlabored respirations, skin warm/dry/pink. Awaiting on CT results. 06:04 Reassessment: Patient and/or family updated on plan of care and expected duration. Pain ea level reassessed. Patient is alert, oriented x 3, equal unlabored respirations, skin warm/dry/pink. Discharge instruction given to patient verbalized the understanding of instruction. Pt left ED ambulatory tolerating well. Vital Signs: 01/23 23:15 BP 127 / 85; Pulse 103; Resp 20; Temp 99.0; Pulse Ox 100% on R/A; Weight 72.57 kg; em Height 5 ft. 4 in. (162.56 cm); Pain 8/10; 01/24 03:00 BP 123 / 70; Pulse 80; Resp 19; Pulse Ox 99% ; ea 05:50 BP 125 / 68; Pulse 78; Resp 19; Temp 98.7; Pulse Ox 99% ; ea 01/23 23:15 Body Mass Index 27.46 (72.57 kg, 162.56 cm) em ED Course: 01/23 22:38 Patient arrived in ED. wm 22:51 Stanton Selby PA is PHCP. jmm 22:51 Alexander Casillas MD is Attending Physician. jmm 23:15 Patient has correct armband on for positive identification. em 23:15 No provider procedures requiring assistance completed. Patient did not have IV access em during this emergency room visit. 23:17 Triage completed. em 23:17 Arm band placed on. em 01/24 00:55 Grace Dawkins, NENA is Primary Nurse. ea 01:15 Inserted saline lock: 20 gauge in left antecubital area, using aseptic technique. ea 01:52 CT Chest For PE Angio In Process Unspecified. EDMS 06:07 IV discontinued, intact, bleeding controlled, No redness/swelling at site. Pressure ea dressing applied. Administered Medications: 01:35 Drug: Zofran (Ondansetron) 4 mg Route: IVP; Site: left antecubital; ea 06:06 Follow up: Response: No adverse reaction ea 01:40 Drug: Decadron - Dexamethasone 10 mg Route: IVP; Site: left antecubital; ea 06:05 Follow up: Response: No adverse reaction ea 01:40 Drug: NS 0.9% 500 ml Route: IV; Rate: bolus; Site: left antecubital; ea 06:06 Follow up: Response: No adverse reaction; IV Status: Completed infusion; IV Intake: ea 500ml 01:41 Drug: Acetaminophen 650 mg Route: PO; ea 06:05 Follow up: Response: No adverse reaction ea 01:41 Drug: morphine 2 mg Route: IVP; Site: left antecubital; ea 06:06 Follow up: Response: No adverse reaction ea Intake: 06:06 IV: 500ml; Total: 500ml. ea Outcome: 05:46 Discharge ordered by . rn 06:05 Discharged to home ambulatory. ea 06:05 Condition: stable 06:05 Discharge instructions given to patient, Instructed on discharge instructions, follow up and referral plans. Demonstrated understanding of instructions, follow-up care. 06:14 Patient left the ED. lexy Signatures: Dispatcher [employer] Stanton Dockery PA PA jmm Munoz, Edgar, RN Alexander Gonzalez MD MD rn Antunez, Elena, RN RN ea Marsh, Wendy
--- NOTE | 2021-01-24 05:47 | EDPHYS ---
Physician Documentation [facility] Name: Lina Gibson Age: 45 yrs Sex: Female : 1975 Arrival Date: 01/23/2021 Time: 22:38 Bed 7 Private MD: ED Physician Alexander Casillas HPI: 01/24 02:37 This 45 yrs old Female presents to ER via Ambulatory with complaints of jmm Shortness Of Breath. 02:37 The patient has shortness of breath at rest. Onset: The symptoms/episode began/occurred jmm gradually, 4 day(s) ago. Duration: The symptoms are continuous, and are steadily getting worse. The patient's shortness of breath is aggravated by coughing. Associated signs and symptoms: Pertinent positives: non-productive cough, fever. The patient has not experienced similar symptoms in the past. Historical: - Allergies: 01/23 23:17 No Known Allergies; em - PMHx: 23:17 None; em - PSHx: 23:17 None; em - Immunization history:: Client reports receiving the 1st dose of the Covid vaccine. - Social history:: Smoking status: Reported history of juuling and/or vaping. ROS: 01/24 02:37 Constitutional: Positive for body aches, chills, fever. jmm Respiratory: Positive for cough, shortness of breath. All other systems are negative. Exam: 02:37 Constitutional: This is a well developed, well nourished patient who is awake, alert, jmm and in no acute distress. Head/Face: atraumatic. Eyes: EOMI, no conjunctival erythema appreciated ENT: Moist Mucus Membranes Neck: Trachea midline, Supple Chest/axilla: Normal chest wall appearance and motion. Cardiovascular: Regular rate and rhythm. No edema appreciated Respiratory: Normal respirations, no respiratory distress appreciated Abdomen/GI: Non distended, soft Back: Normal ROM Skin: General appearance color normal MS/ Extremity: Moves all extremities, no obvious deformities appreciated, no edema noted to the lower extremities Neuro: Awake and alert, normal gait Psych: Behavior is normal, Mood is normal, Patient is cooperative and pleasant Vital Signs: 01/23 23:15 BP 127 / 85; Pulse 103; Resp 20; Temp 99.0; Pulse Ox 100% on R/A; Weight 72.57 kg; em Height 5 ft. 4 in. (162.56 cm); Pain 8/10; 01/24 03:00 BP 123 / 70; Pulse 80; Resp 19; Pulse Ox 99% ; ea 05:50 BP 125 / 68; Pulse 78; Resp 19; Temp 98.7; Pulse Ox 99% ; ea 01/23 23:15 Body Mass Index 27.46 (72.57 kg, 162.56 cm) em MDM: 00:56 Patient medically screened. [facility] 02:50 Data reviewed: vital signs, nurses notes. Counseling: I had a detailed discussion with [facility] the patient and/or guardian regarding:. Transition of care: After a detail discussion of the patient's case, care is transferred to Alexander Casillas MD. 03:37 ED course: Radiology system unable to transmit images to virtual radiology, causing rn delay. 05:12 ED course: Still no radiology read, biosolids management technician states still not able to submit rn images and IT has not gotten back to her with a solution. Several calls to Dr. Ness and texts by instrumentation and controls technician without response or answering of phone. Attempting to call another radiologist to have the studies read.. 05:45 Differential diagnosis: pneumonia, Pneumothorax pulmonary edema, Pulmonary Embolism rn Covid. Data interpreted: Pulse oximetry: on room air is 100 %. Interpretation: normal. Special discussion: I discussed with the patient/guardian in detail that at this point there is no indication for admission to the hospital. It is understood, however, that if the symptoms persist or worsen the patient needs to return immediately for re-evaluation. 01/24 00:46 Order name: SARS-COV-2 RT PCR; Complete Time: 00:47 EDMS 01/24 00:46 Order name: CT Chest For PE Angio; Complete Time: 05:39 [facility] 01/24 02:43 Order name: CREATININE WHOLE BLOOD; Complete Time: 02:50 EDMS Administered Medications: 01:35 Drug: Zofran (Ondansetron) 4 mg Route: IVP; Site: left antecubital; ea 06:06 Follow up: Response: No adverse reaction ea 01:40 Drug: Decadron - Dexamethasone 10 mg Route: IVP; Site: left antecubital; ea 06:05 Follow up: Response: No adverse reaction ea 01:40 Drug: NS 0.9% 500 ml Route: IV; Rate: bolus; Site: left antecubital; ea 06:06 Follow up: Response: No adverse reaction; IV Status: Completed infusion; IV Intake: ea 500ml 01:41 Drug: Acetaminophen 650 mg Route: PO; ea 06:05 Follow up: Response: No adverse reaction ea 01:41 Drug: morphine 2 mg Route: IVP; Site: left antecubital; ea 06:06 Follow up: Response: No adverse reaction ea Disposition: 06:35 Co-signature as Attending Physician, Alexander Casillas MD I agree with the assessment and rn plan of care. PA/WILDLIFE AND GAME PROTECTOR's history reviewed, patient interviewed, and examined. HPI: 45-year-old female with shortness of breath, recent Covid exposure. No chronic medical problems My personal exam of patient reveals: No respiratory distress. Speaking full sentences. Nontoxic. I agree with assessment and care plan and confirm the diagnosis (es) above. Attestation: The patient's history, exam findings, diagnostics, and a summary of any interventions or procedures was reviewed in detail with Stanton TOSCANO. Disposition Summary: 01/24/21 05:46 Discharge Ordered Location: Home rn Problem: new rn Symptoms: have improved rn Condition: Stable rn Diagnosis - Pneumonia due to SARS-associated coronavirus rn Followup: rn - With: Private Physician - When: As needed - Reason: Recheck today's complaints, Re-evaluation by your physician Discharge Instructions: - Discharge Summary Sheet rn - COVID-19 rn - COVID-19 Frequently Asked Questions rn - 10 Things You Can Do to Manage Your COVID-19 Symptoms at Home - [facility] rn Forms: - Medication Reconciliation Form rn - Thank You Letter rn - Antibiotic internet marketing analyst - Prescription Opioid Use rn - Family Work Release ea - Work release form ea Signatures: Dispatcher [employer] EDStanton Glover PA PA jmm Munoz, Edgar, RN RN em Nieto, Roman, MD MD rn Antunez, Elena, RN RN ea Corrections: (The following items were deleted from the chart) 01/23 23:26 23:14 CORONAVIRUS+ ordered. EDMO EDMS
[2021-01-24 06:19] VITALS: BP 127/85; TEMP 99; O2SAT 100
== END 2021-01-24 06:14 | disposition home or self-care (01) ==
LOC: ER 22:33
DX: U07.1 COVID-19 (principal); J12.82 Pneumonia due to coronavirus disease 2019
CPT/HCPCS: 71275; 82565; 96361; 96374; 96375; 99283; J1100; J2270; J2405; J7040; Q9967; U0003

== ENCOUNTER 2021-06-26 21:11 | Emergency (ER) | payer SELFPAY ==
[2021-06-26] MEDS ORDERED: NA CHLORIDE 0.9% 1,000 ML ONE (22:16)
[2021-06-26] MEDS ORDERED: ONDANSETRON 4 MG/2 ML VIAL ONE (22:33)
[2021-06-26] MEDS ORDERED: MORPHINE 4 MG/ML SYR ONE (22:33)
[2021-06-26 22:50] LABS: Absolute Lymphocytes (CBC) 1.1 K/uL (0.7-4.9); Hematocrit 40.1 % (36.0-45.0); Lymphocytes % 14.1 % (15.3-44.8); MPV 9.3 fL (7.6-11.3); RBC Red Blood Cell Count 4.52 M/uL (3.86-4.86)
[2021-06-26 23:01] LABS: ALT/SGPT 18 U/L (12-78); AST/SGOT 10 U/L (15-37); Albumin 3.5 g/dL (3.4-5.0); Alkaline Phosphatase 63 U/L (45-117); BUN Blood Urea Nitrogen 5 mg/dL (7-18); Bicarbonate 28 mmol/L (21-32); Bilirubin Direct < 0.1 mg/dL (0-0.2); Bilirubin Total 0.3 mg/dL (0.2-1.0); Glucose Level 114 mg/dL (74-106); Lipase 73 U/L (73-393); Potassium 3.8 mmol/L (3.5-5.1); Protein, Total 7.3 g/dL (6.4-8.2); Sodium Level 139 mmol/L (136-145)
[2021-06-27 00:17] LABS: Urine Blood Negative (Negative); Urine Glucose Negative (Negative); Urine Protein Negative (Negative); Urine pH 6.5 (5.0-7.0)
[2021-06-27] MEDS ORDERED: FLEET ENEMA ADULT PR ONE (03:51)
[2021-06-27] MEDS ORDERED: MAGNESIUM CITRATE 300 ML BOT ONE (03:51)
--- NOTE | 2021-06-27 06:45 | EDPHYS ---
Physician Documentation [facility] Name: Lina Gibson Age: 46 yrs Sex: Female : 1975 Arrival Date: 06/26/2021 Time: 21:13 Bed 12 Private MD: ED Physician Jasbir Sevilla HPI: 06/26 22:19 This 46 yrs old Female presents to ER via Ambulatory with complaints of Constipation. mh7 22:19 The patient presents with abdominal pain in the lower abdomen, Constipation. Onset: The mh7 symptoms/episode began/occurred 2 week(s) ago. The symptoms do not radiate. Associated signs and symptoms: Pertinent positives: constipation, nausea, Pertinent negatives: anorexia, blood in stools, chest pain, diarrhea, dysuria, fever, headache, hematuria, palpitations, shortness of breath, vaginal discharge, vomiting, vomiting blood. The symptoms are described as intermittent, vague, waxing/waning. Modifying factors: The symptoms are alleviated by nothing, the symptoms are aggravated by nothing. Severity of pain: At its worst the pain was moderate 3 day(s) ago, in the emergency department the pain is unchanged. 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 - Social history:: Smoking status: Patient denies any tobacco usage or history of. Patient/guardian denies using alcohol, street drugs. ROS: 22:19 Constitutional: Negative for fever, chills, and weight loss, Eyes: Negative for injury, mh7 pain, redness, and discharge, ENT: Negative for injury, pain, and discharge, Neck: Negative for injury, pain, and swelling, Cardiovascular: Negative for chest pain, palpitations, and edema, Respiratory: Negative for shortness of breath, cough, wheezing, and pleuritic chest pain, Back: Negative for injury and pain, : Negative for injury, bleeding, discharge, and swelling, MS/Extremity: Negative for injury and deformity, Skin: Negative for injury, rash, and discoloration, Neuro: Negative for headache, weakness, numbness, tingling, and seizure, Psych: Negative for depression, anxiety, suicide ideation, homicidal ideation, and hallucinations, Allergy/Immunology: Negative for hives, rash, and allergies, Endocrine: Negative for neck swelling, polydipsia, polyuria, polyphagia, and marked weight changes, Hematologic/Lymphatic: Negative for swollen nodes, abnormal bleeding, and unusual bruising. Exam: 22:19 Head/Face: Normocephalic, atraumatic. Eyes: Pupils equal round and reactive to light, mh7 extra-ocular motions intact. Lids and lashes normal. Conjunctiva and sclera are non-icteric and not injected. Cornea within normal limits. Periorbital areas with no swelling, redness, or edema. Neck: Trachea midline, no thyromegaly or masses palpated, and no cervical lymphadenopathy. Supple, full range of motion without nuchal rigidity, or vertebral point tenderness. No Meningismus. Chest/axilla: Normal chest wall appearance and motion. Nontender with no deformity. No lesions are appreciated. 22:19 Respiratory: Lungs have equal breath sounds bilaterally, clear to auscultation and percussion. No rales, rhonchi or wheezes noted. No increased work of breathing, no retractions or nasal flaring. 22:19 Back: No spinal tenderness. No costovertebral tenderness. Full range of motion. Skin: Warm, dry with normal turgor. Normal color with no rashes, no lesions, and no evidence of cellulitis. MS/ Extremity: Pulses equal, no cyanosis. Neurovascular intact. Full, normal range of motion. Neuro: Awake and alert, GCS 15, oriented to person, place, time, and situation. Cranial nerves II-XII grossly intact. Motor strength 5/5 in all extremities. Sensory grossly intact. Cerebellar exam normal. Normal gait. Psych: Awake, alert, with orientation to person, place and time. Behavior, mood, and affect are within normal limits. 22:19 Constitutional: The patient appears in no acute distress, alert, awake, uncomfortable. 22:19 Cardiovascular: Rate: tachycardic, Rhythm: regular, Pulses: no pulse deficits are appreciated, Heart sounds: normal, normal S1and S2, Edema: is not appreciated, JVD: is not appreciated. 22:19 Abdomen/GI: Inspection: abdomen appears normal, Bowel sounds: active, all quadrants, Palpation: moderate abdominal tenderness, in the suprapubic area, right lower quadrant and left lower quadrant, mass, is not appreciated, rebound tenderness, is not appreciated, voluntary guarding, is not appreciated, involuntary guarding, is not appreciated, no appreciated organomegaly, Rectal exam: the exam is deferred, because of patient request, Indicators: McBurney's point is not tender, Morris's sign is negative, Rovsing's sign is negative, Obturator sign is negative, Psoas sign is negative, Liver: no appreciated palpable abnormalities, Hernia: not appreciated. Vital Signs: 21:29 BP 119 / 68; Pulse 131; Resp 20; Temp 98.6; Pulse Ox 100% on R/A; Weight 68.04 kg; sf1 Height 5 ft. 4 in. (162.56 cm); Pain 5/10; 06/27 02:21 BP 114 / 78; Pulse 92; Resp 16; Pulse Ox 98% on R/A; Pain 2/10; sf1 06/26 21:29 Body Mass Index 25.75 (68.04 kg, 162.56 cm) 1 MDM: 06:00 Differential diagnosis: bowel obstruction, diverticulitis, Irritable bowel syndrome, mh7 non-specific abd pain, Ureterolithiasis, urinary tract infection. Data reviewed: vital signs, nurses notes, old medical records, lab test result(s), CBC, electrolytes, urinalysis, EKG, radiologic studies, CT scan. Data interpreted: Pulse oximetry: on room air is 98 %. Interpretation: normal. 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 Response to treatment: the patient's symptoms have markedly improved after treatment. 06:45 Patient medically screened. [facility] 06:45 ED course: Feels better, well-appearing, no acute distress, vitals are stable, no focal [facility] neurological deficits. No abdominal pain, nausea, vomiting. Tolerating p.o. intake without difficulty. Patient handed to large bowel movements after receiving medication in the ED. Discussed all test results and findings with patient. She is ready for discharge at this time. Will DC with medication and follow-up information.. 06:45 Refusal of service: The patient/guardian displays adequate decision making capability [facility] and despite a detailed discussion of alternatives, benefits, risks, and consequences refuses: Admission to the hospital for further work-up and treatment, rectal examiniation. 06/26 22:09 Order name: Basic Metabolic Panel; Complete Time: 23:08 [facility] 06/26 22:09 Order name: CBC with Diff; Complete Time: 23:08 [facility] 06/26 22:09 Order name: Hepatic Function; Complete Time: 23:08 [facility] 06/26 22:09 Order name: Lipase; Complete Time: 23:08 [facility] 06/27 00:17 Order name: Urine Dipstick-Ancillary; Complete Time: 00:19 [facility] 06/27 00:34 Order name: Urine --Ancillary (enter results); Complete Time: 00:52 9 06/26 22:09 Order name: IV Saline Lock; Complete Time: 22:28 [facility] 06/26 22:09 Order name: EKG; Complete Time: 22:09 [facility] 06/26 22:09 Order name: CT Abd/Pelvis - PO and IV Contrast [facility] 06/26 22:09 Order name: Labs collected and sent; Complete Time: 22:28 [facility] 06/26 22:09 Order name: Urine Dipstick-Ancillary (obtain specimen); Complete Time: 00:11 [facility] 06/26 22:09 Order name: Urine Test (obtain specimen); Complete Time: 00:11 [facility] 06/26 22:09 Order name: EKG - Nurse/Tech; Complete Time: 22:55 [facility] Administered Medications: 06/26 22: Drug: NS 0.9% 1000 ml Route: IV; Rate: 1000 ml; Site: right antecubital; sf1 22:33 Drug: morphine 4 mg Route: IVP; Site: right antecubital; sf1 22:33 Drug: Zofran (Ondansetron) 4 mg Route: IVP; Site: right antecubital; sf1 06/27 03:57 Drug: Fleet Enema (sodium phosphate) 133 ml Route: SC; sf1 03:58 Drug: Citrate of Magnesia Liquid 300 ml Route: PO; sf1 Disposition Summary: 06/27/21 06:45 Discharge Ordered Location: Home [facility] Problem: an ongoing problem [facility] Symptoms: have improved [facility] Condition: Stable [facility] Diagnosis - Constipation [facility] Followup: [facility] - With: Private Physician - When: 1 - 2 days - Reason: Worsening of condition, Recheck today's complaints, Continuance of care, Re-evaluation by your physician Followup: [facility] - With: Raheem Barroso MD - When: 1 - 2 days - Reason: Worsening of condition, Recheck today's complaints Discharge Instructions: - Discharge Summary Sheet [facility] - High-Fiber Diet [facility] - Constipation, Adult, Fhxa-ye-Mnan [facility] Forms: - Medication Reconciliation Form [facility] - Thank You Letter [facility] - Antibiotic Education [facility] - Prescription Opioid Use [facility] Prescriptions: - Dulcolax (bisacodyl) 10 mg Rectal suppository - insert 1 suppository by RECTAL route once daily as needed for constipation; 5 mh7 suppository; Refills: 0, Product Selection Permitted - Fleet Enema - insert 1 bottle by RECTAL route once daily As needed; 5 bottle; Refills: 0, [facility] Product Selection Permitted - lidocaine 5 % Topical ointment - apply 1 application by TOPICAL route 1-3 times daily Apply to anus; 1 tube; [facility] Refills: 0, Product Selection Permitted - Lactulose 10 gram/15 mL Oral Solution - take 30 milliliters by ORAL route once daily; 150 milliliter; Refills: 0, [facility] Product Selection Permitted Signatures: Dispatcher [employer] Jasbir Marion MD MD [facility] Heide Falk RN RN sf1
--- NOTE | 2021-06-27 06:45 | ER ---
Nurse's Notes [facility] Name: Lina Gibson Age: 46 yrs Sex: Female : 1975 Arrival Date: 06/26/2021 Time: 21:13 Bed 12 Private MD: Diagnosis: Constipation Presentation: 06/26 21:29 Chief complaint: Patient states: 2 weeks since last bowel movement, tied dulcolax, sf1 suppository, and hemorrhoid cream no results pain in the rectum, stomach cramping. Coronavirus screen: Vaccine status: Patient reports receiving the 2nd dose of the covid vaccine. Client denies travel out of the [place] in the last 14 days. Ebola Screen: Patient negative for fever greater than or equal to 101.5 degrees Fahrenheit, and additional compatible Ebola Virus Disease symptoms Patient denies exposure to infectious person. Patient denies travel to an Ebola-affected area in the 21 days before illness onset. Initial Sepsis Screen: Does the patient meet any 2 criteria? No. Patient's initial sepsis screen is negative. Does the patient have a suspected source of infection? No. Patient's initial sepsis screen is negative. Risk Assessment: Do you want to hurt yourself or someone else? Patient reports no desire to harm self or others. Onset of symptoms was June 13, 2021. 21:29 Method Of Arrival: Ambulatory sf1 21:29 Acuity: JOVANNI 4 sf1 21:29 Acuity: JOVANNI 3 sf1 Triage Assessment: 21:33 General: Appears uncomfortable, Behavior is calm, cooperative, appropriate for age. sf1 Pain: Complains of pain in gluteal cleft. GI: Reports constipation, cramping. 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 - Social history:: Smoking status: Patient denies any tobacco usage or history of. Patient/guardian denies using alcohol, street drugs. Screenin:36 Abuse screen: Denies threats or abuse. Nutritional screening: No deficits noted. sf1 Tuberculosis screening: No symptoms or risk factors identified. Fall Risk None identified. Vital Signs: 21:29 BP 119 / 68; Pulse 131; Resp 20; Temp 98.6; Pulse Ox 100% on R/A; Weight 68.04 kg; sf1 Height 5 ft. 4 in. (162.56 cm); Pain 5/10; 06/27 02:21 BP 114 / 78; Pulse 92; Resp 16; Pulse Ox 98% on R/A; Pain 2/10; sf1 06/26 21:29 Body Mass Index 25.75 (68.04 kg, 162.56 cm) sf1 ED Course: 06/26 21:13 Patient arrived in ED. kc5 21:31 Triage completed. sf1 21:33 Arm band placed on left wrist. sf1 21:36 Patient has correct armband on for positive identification. 1 21:40 Jasbir Sevilla MD is Attending Physician. [facility] 22:09 Heide Falk RN is Primary Nurse. sf1 22:28 Basic Metabolic Panel Sent. sf1 22:28 CBC with Diff Sent. sf1 22:28 Hepatic Function Sent. sf1 22:28 Lipase Sent. sf1 22:29 Inserted saline lock: 20 gauge in right antecubital area, using aseptic technique. sf1 Blood collected. 06/27 01:35 CT Abd/Pelvis - PO and IV Contrast In Process Unspecified. EDMS 06:44 Raheem Barroso MD is Referral Physician. [facility] 07:02 No provider procedures requiring assistance completed. IV discontinued, intact, sf1 bleeding controlled, No redness/swelling at site. Pressure dressing applied. Administered Medications: 06/26 22: Drug: NS 0.9% 1000 ml Route: IV; Rate: 1000 ml; Site: right antecubital; sf1 22:33 Drug: morphine 4 mg Route: IVP; Site: right antecubital; sf1 22:33 Drug: Zofran (Ondansetron) 4 mg Route: IVP; Site: right antecubital; sf1 06/27 03:57 Drug: Fleet Enema (sodium phosphate) 133 ml Route: DC; sf1 03:58 Drug: Citrate of Magnesia Liquid 300 ml Route: PO; sf1 Outcome: 06:45 Discharge ordered by . sharita 07:02 Discharged to home ambulatory. sf1 07:02 Condition: good 07:02 Discharge instructions given to patient, Instructed on discharge instructions, follow up and referral plans. Demonstrated understanding of instructions, follow-up care, medications, Prescriptions given X 4. 07:03 Patient left the ED. sf1 Signatures: Dispatcher [employer] EDMS Jasbir Sevilla MD MD [facility] Josephine Arreaga Heide Falk RN RN sf1
[2021-06-27 07:11] VITALS: TEMP 98.6
[2021-06-27 07:12] VITALS: BP 114/78; O2SAT 98
--- NOTE | 2021-06-27 20:16 | RAD REPORT ---
EXAM DESCRIPTION: CT - Abdomen Pelvis W Contrast - 06/27/2021 6:24 am CLINICAL HISTORY: 46 years Female Abd pain;Constipation COMPARISON: None TECHNIQUE: Images were obtained in axial, sagittal, and coronal planes. Intravenous and oral contras t was administered. This exam was performed according to our departmental dose-optimization program which includes use of Automated Exposure Control, adjustment of the mA and/or kV according to patient size and/or use of iterative reconstruction technique. FINDINGS: No abnormality involving the liver, spleen, pancreas, gallbladder, and adrenal glands bila terally. No obstructing renal or ureteral calculi bilaterally. No hydronephrosis bilaterally. Moderate bladder distention.. Marked constipation. No bowel obstruction, perforation, or inflammation. Appendix not well identified however no secondary signs for appendicitis. No abnormality of abdominal aorta or portal vein. No adenopathy or abnormal fluid collections seen. No abnormality lower lungs bilaterally. No acute osseous abnormality. IMPRESSION: No acute intra-abdominal abnormality. Marked constipation. No definite bowel obstruction . Electronically signed by: Mer Vasquez MD 06/27/2021 3:02 AM BUILDING DRAFTER Due to temporary technical issues with the PACS/Fluency reporting system, reports are being signed by the in house radiologists without review as a courtesy to insure prompt reporting. The interpreting radiologist is fully responsible for the content of the report.
== END 2021-06-27 07:03 | disposition home or self-care (01) ==
LOC: ER 21:11
DX: K59.00 Constipation, unspecified (principal)
CPT/HCPCS: 36415; 74177; 80048; 80076; 81003; 81025; 83690; 85025; 93005; 96374; 96375; 99284; J2405; J7030; Q9967

== ENCOUNTER → 2023-05-26 | Emergency (ER) | payer SELFPAY ==
[~2023-05-26] MED LIST: FLEET ENEMA ADULT PR ONE; GLYCERIN ADULT SUPP PR ONE; GLYCERIN PEDI RECTAL SUPP PR ONE; LACTULOSE 20 GM/30 ML UCUP ONE; MAGNESIUM CITRATE 300 ML BOT ONE
--- OUTSIDE RECORDS SUMMARY | 2023-05-26 12:16 | XMS REPORT | Continuity of Care Document ---
Author Name Unknown Address [address] [facility] [address] [place] [address] [facility]connect Address [address] [facility] [address] [place] [address] Care Team Providers Care Marketing Strategy Manager Name Role Phone PCP, PATIENT DOES NOT HAVE A Primary Care Physic stephan Unavailable URIEL SCHUSTER Attending Clinician JACKIE Blanca Attending Clinician Unavailable JACKIE BOLIVAR Attending Clinician Unavailable JHOANA JUAREZ Attending Clinician Jhoana Stanford MD Attending Clinician [phone] Pob, Adc Lab Main Attending Clinician Belen CHILDS Attending Clinician Unavailable AMADEO Admitting Clinician Unavailable Payers Payer Name Policy Type Policy Number Effective Date Expirati on Date Source Allergies, Adverse Reactions, Alerts Allergy Name Allergy Type Status Severity Reaction(s) Onset Date Inactive Date Treating Clinician Comments Source NO KNOWN ALLERGIE S Drug Class Active [facility] Social History Social Habit Start Date Stop Date Quantity Comments Source Exposure to SARS-CoV-2 (event) 2022-07-23 00:00:00 2022-08-02 11:20:00 Not sure [facility] Sex Assigned At 1975 00:00:00 1975 00:00:00 [facility] Smoking Status Start Date Stop Date Source Tobacco smoking consumption unknown [facility] Medications Ordered Medication Name Filled Medication Name Start Date Stop Date Current Medication? Ordering Clinician Indication Dosage Frequency Signature (SIG) Comments Components Source TAKE 30ML BY MOUTH ONCE DAILY 12-30 00:00: 00 No TAKE 1 CAPSULE BY MOUTH ONCE DAILY IN THE MORNING 12-24 00:00: 00 No 20 TAKE 1 CAPSULE BY MOUTH ONCE DAILY IN THE MORNING 12-24 00:00: 00 No 10 folic acid 1 mg tablet 01-02 00:00: 00 No 1mg lactulose 10 gram/15 mL oral solution 12-26 00:00: 00 No 15gram/ 15 mL Vital Signs Vital Name Observation Time Observation Value Comments S ource Systolic blood pressure 2022-07-12 14:42:00 126 mm[Hg] [facility] Diastolic blood pressure 2022-07-12 14:42:00 80 mm[Hg] [facility] Heart rate 2022-07-12 14:42:00 107 /min [facility] Respiratory rate 2022-07-12 14:42:00 18 /min [facility] Body height 2022-07-12 14:42:00 160 cm [facility] Body weight 2022-07-12 14:42:00 74.163 kg [facility] BMI 2022-07-12 14:42:00 28.96 kg/m2 [facility] Oxygen saturation in Arterial blood by Pulse oximetry 2022-07-12 14:42:00 100 /min [facility] BP Systolic 2021-12-30 13:47:00 110 mm[Hg] BP Diastolic 2021-12-30 13:47:00 71 mm[Hg] Weight Measured 2021-12-30 13:47:00 152.40 pounds Height Measured 2021-12-30 13:47:00 63.00 inches Body Temperature 2021-12-30 13:47:00 98.20 degrees Heart Rate 2021-12-30 13:47:00 94.00 /min Respiratory Rate 2021-12-30 13:47:00 BP Systolic 2018-12-26 10:58:00 107 mm[Hg] BP Diastolic 2018-12-26 10:58:00 72 mm[Hg] Weight Measured 2018-12-26 10:58:00 147.60 pounds Height Measured 2018-12-26 10:58:00 63.00 inches Body Temperature 2018-12-26 10:58:00 98.10 degrees Heart Rate 2018-12-26 10:58:00 71.00 /min Respiratory Rate 2018-12-26 10:58:00 Procedures Procedure Date / Time Performed Performing Clinicia n Source US HEAD NECK 2022-08-02 18:28:13 Jhoana Juarez [facility] Plan of Care Planned Activity Planned Date Details Comments Source Goal Plan of Care Note [code = 44943-3] Goal Plan of Care Note [code = 62998-3] Goal Plan of Care Note [code = 94389-0] Goal Plan of Care Note [code = 13294-1] Goal Plan of Care Note [code = 55184-1] Goal Plan of Care Note [code = 51433-9] Goal Plan of Care Note [code = 51866-1] Goal Plan of Care Note [code = 37765-9] Goal Plan of Care Note [code = 41858-8] Encounters Start Date/Time End Date/Time Encounter Type Admission Type Attending Clinicians Care Facility Care Department Encounter ID Source 2023-03-17 14:30:00 2023-03-17 14:30:00 Outpatient URIEL DUPREE [facility] [id number] [facility] 2022-10-26 00:00:00 2022-10-26 00:00:00 Outpatient JHOANA PRUETT [facility] [id number] [facility] 2022-09-30 00:00:00 2022-09-30 00:00:00 Patient Secure Jhoana Saxena [facility] 1..840.114 350.1.13.10 4.2.7.2.686 [id number] [facility] 2022-08-07 00:00:00 2022-08-07 00:00:00 Patient Secure [facility] Sax[facility] 1..840.114 350.1.13.10 4.2.7.2.686 [id number] [facility] 2022-08-06 00:00:00 2022-08-06 00:00:00 Telephone Jhoana Juarez [facility] 1.2.840.114 350.1.13.10 4.2.7.2.686 [id number] [facility] 2022-08-02 11:29:05 2022-08-02 23:59:00 Hospital Encounter Jhoana Juarez [facility] 1.2.840.114 350.1.13.10 4.2.7.2.686 [id number] [facility] 2022-08-02 11:29:05 2022-08-02 23:59:00 Outpatient R JHOANA JUAREZ [facility] [id number] [facility] 2022-08-02 12:00:00 2022-08-02 12:15:00 Operations Recruiter Visit Pob, Adc Lab Main Jhoana Juarez [facility] 1.2.840.114 350.1.13.10 4.2.7.2.686 [id number] [facility] 2022-07-12 09:00:00 2022-07-12 10:04:02 Outpatient R JHOANA JUAREZ [facility] [id number] [facility] 2022-07-12 09:00:00 2022-07-12 10:04:02 Office Visit Jhoana Juarez [facility] 1.2.840.114 350.1.13.10 4.2.7.2.686 [id number] [facility] 2021-12-30 00:00:00 2021-12-30 00:00:00 Outpatient Visit [id number] 2021-08-21 02:33:00 2021-08-21 02:33:00 Outpatient [facility]OC[facility] [id number] [facility] Results Test Description Test Time Test Comments Results Result Co mments Source TSH + FREE T4 [id number] 00:36:53* Test Item Value Reference Range Interpretation Comme nts TSH, THIRD GENERATION (test code = 2821) <0.010 UIU/ML 0.400-4.100 L FREE T4 (THYROXINE) (test co de = 2823) 1.11 NG/DL 0.80-1.90 COMPREHENSIVE METABOLIC [id number] 03:46:16* Test Item Value Reference Range Interpretation Comme nts GLUCOSE (test code = 2217) 97 MG/DL 70-99 BUN (test code = 8) 6 MG/DL 6-20 CREATININE (test code = 2214) 0.74 MG/DL 0.60-1.30 eGFR (2020 CKD-EPI) (test code = 72462) 101 ML/MIN/1.73 >60 CALC BUN/CREAT (test code = 2235) 8 RATIO 6-28 SODIUM (test code = 2231) 139 MEQ/L 133-146 POTASSIUM (test code = 2228) 4.6 MEQ/L 3.5-5.4 CHLORIDE (test code = 2215) 105 MEQ/L 95-107 CARBON DIOXIDE (test code = 2206) 24 MEQ/L 19-31 CALCIUM (test code = 2209) 10.8 MG/DL 8.5-10.5 H PROTEIN, TOTAL (test code = 2229) 6.9 G/DL 6.1-8.3 ALBUMIN (test code = 2201) 4.2 G/DL 3.5-5.2 CALC GLOBULIN (test code = 2240) 2.7 G/DL 1.9-3.7 CALC A/G RATIO (test code = 2234) 1.6 RATIO 1.0-2.6 BILIRUBIN, TOTAL (test code = 2207) 0.2 MG/DL See_Comment [Automated me ssage] The system which generated this result transmitted reference range: <=1.2. The reference range was not used to interpret this result as normal/abnormal. ALKALINE PHOSPHATASE (test code = 2204) 51 U/L 40-118 AST (test code = 2218) 16 U/L 9-40 ALT (test code = 2219) 11 U/L 5-40 UNLESS OTHERWISE INDICATED, ALL TESTING PERFORMED [employer] [address] [place] [address] RAKING MACHINE OPERATOR: GAGE MYERS M.D. [place] NUMBER [id number] [place]. [id number] COMPREHENSIVE METABOLIC [id number] 03:34:01* Test Item Value Reference Range Interpretation Comme nts GLUCOSE (test code = 7) 61 MG/DL 70-99 L BUN (test code = 220) 8 MG/DL 6-20 CREATININE (test code = 2214) 0.74 MG/DL 0.60-1.30 eGFR (2020 CKD-EPI) (test code = 86485) 101 ML/MIN/1.73 >60 CALC BUN/CREAT (test code = 2235) 11 RATIO 6-28 SODIUM (test code = 223) 140 MEQ/L 133-146 POTASSIUM (test code = 2228) 4.3 MEQ/L 3.5-5.4 CHLORIDE (test code = 2215) 104 MEQ/L 95-107 CARBON DIOXIDE (test code = 2206) 25 MEQ/L 19-31 CALCIUM (test code = 2209) 11.0 MG/DL 8.5-10.5 H PROTEIN, TOTAL (test code = 2229) 6.6 G/DL 6.1-8.3 ALBUMIN (test code = 2201) 4.1 G/DL 3.5-5.2 CALC GLOBULIN (test code = 2240) 2.5 G/DL 1.9-3.7 CALC A/G RATIO (test code = 2234) 1.6 RATIO 1.0-2.6 BILIRUBIN, TOTAL (test code = 2207) <0.2 MG/DL See_Comment [Automated me ssage] The system which generated this result transmitted reference range: <=1.2. The reference range was not used to interpret this result as normal/abnormal. ALKALINE PHOSPHATASE (test code = 2204) 58 U/L 40-118 AST (test code = 2218) 16 U/L 9-40 ALT (test code = 2219) 10 U/L 5-40 UNLESS OTHERWISE INDICATED, ALL TESTING PERFORMED [employer] [address] [place] [address] RAKING MACHINE OPERATOR: GAGE MYERS M.D. CLIA NUMBER [id number] [place]. [id number] THYROID II PROFILE (TU,T4,FTI,TSH)2021-12-31 06:44:44* Test Item Value Reference Range Interpretation Comme nts T-UPTAKE (test code = 2817) 30.2 % 24.3-39.0 THYROX. BIND. CAPAC. (test code = 25127) 1.1 0.8-1.3 T4 (THYROXINE) (test code = 2819) 7.6 UG/DL 4.5-10.5 CORRECTED T4 (FTI) (test code = 2820) 6.9 UG/DL 4.2-11.6 TSH, THIRD GENERATION (test code = 2821) <0.010 UIU/ML 0.400-4.100 L UNLESS OTHERWISE INDICATED, ALL TESTING PERFORMED [facility] [address] [place] [address] RAKING MACHINE OPERATOR: GAGE MYERS M.D. CLIA NUMBER [id number] [place] [id number] COMPREHENSIVE METABOLIC [id number] 05:35:11* Test Item Value Reference Range Interpretation Comme nts GLUCOSE (test code = 2217) 94 MG/DL 70-99 BUN (test code = 2208) 9 MG/DL 6-20 CREATININE (test code = 2214) 0.78 MG/DL 0.60-1.30 eGFR (2020 CKD-EPI) (test code = 75589) 95 ML/MIN/1.73 >60 CALC BUN/CREAT (test code = 2235) 12 RATIO 6-28 SODIUM (test code = 2231) 139 MEQ/L 133-146 POTASSIUM (test code = 2228) 4.5 MEQ/L 3.5-5.4 CHLORIDE (test code = 2215) 104 MEQ/L 95-107 CARBON DIOXIDE (test code = 2206) 26 MEQ/L 19-31 CALCIUM (test code = 2209) 10.9 MG/DL 8.5-10.5 H PROTEIN, TOTAL (test code = 2229) 6.6 G/DL 6.1-8.3 ALBUMIN (test code = 2201) 4.2 G/DL 3.5-5.2 CALC GLOBULIN (test code = 2240) 2.4 G/DL 1.9-3.7 CALC A/G RATIO (test code = 2234) 1.8 RATIO 1.0-2.6 BILIRUBIN, TOTAL (test code = 2207) <0.2 MG/DL See_Comment [Automated ut ssage] The system which generated this result transmitted reference range: <=1.2. The reference range was not used to interpret this result as normal/abnormal. ALKALINE PHOSPHATASE (test code = 4) 55 U/L 40-118 AST (test code = 2218) 16 U/L 9-40 ALT (test code = 2219) 10 U/L 5-40 CBC W/AUTO DIFF WITH [id number] 03:28:11* Test Item Value Reference Range Interpretation Comme nts WBC (test code = 1001) 4.5 K/UL 3.5-11.0 RBC (test code = 1002) 4.00 M/UL 3.80-5.40 HEMOGLOBIN (test code = 1003) 11.1 G/DL 11.5-15.5 L HEMATOCRIT (test code = 1004) 34.2 % 34.0-45.0 MCV (test code = 1005) 85.5 fL 80.0-99.0 MCH (test code = 1006) 27.8 PG 25.0-33.0 MCHC (test code = 1007) 32.5 G/DL 31.0-36.0 RDW (test code = 1038) 13.1 % 11.5-15.0 NEUTROPHILS (test code = 1008) 59.3 % LYMPHOCYTES (test code = 1010) 23.4 % MONOCYTES (test code = 1011) 15.4 % EOSINOPHILS (test code = 1012) 0.4 % BASOPHILS (test code = 1013) 1.3 % IMMATURE GRANULOCYTES (test code = 1036) 0.2 % NUCLEATED RBCS (test code = 1065) 0.0 /100 WBC'S See_Comment [Automated messa ge] The system which generated this result transmitted reference range: 0.0. The reference range was not used to interpret this result as normal/abnormal. PLATELET COUNT (test code = 1015) 140 K/UL 130-400 ABSOLUTE NEUTROPHILS (test code = 1066) 2.66 K/UL 1.50-7.50 ABSOLUTE LYMPHOCYTES (test code = 1067) 1.05 K/UL 1.00-4.00 ABSOLUTE MONOCYTES (test code = 1068) 0.69 K/UL 0.20-1.00 ABSOLUTE EOSINOPHILS (test code = 1040) 0.02 K/UL 0.00-0.50 ABSOLUTE BASOPHILS (test code = 1069) 0.06 K/UL 0.00-0.20 ABS IMMATURE GRANULOCYTES (test code = 1020) 0.01 K/UL 0.00-0.10 ABS NUCLEATED RBCS (test code = 19199) 0.00 K/UL 0.00-0.11 VITAMIN [id number] 00:00:00* Test Item Value Reference Range Interpretation Comme nts VITAMIN B-12 (test code = 2840) 319 PG/ML FOLIC [id number] 00:00:00* Test Item Value Reference Range Interpretation Comme nts FOLIC ACID (test code = 2695) 5.8 UG/L FOLATE, [id number] 00:00:00* Test Item Value Reference Range Interpretation Comme nts HEMATOCRIT (test code = 1004) 33.3 % FOLATE, RBC (test code = 2690) 961 NG/ML [id number] 00:00:00* Test Item Value Reference Range Interpretation Comme nts FERRITIN (test code = 2075) 5 NG/ML RETICULOCYTE [id number] 00:00:00* Test Item Value Reference Range Interpretation Comme nts RETICULOCYTE COUNT (test code = 1018) 1.9 % RETICULOCYTE [id number] 00:00:00* Test Item Value Reference Range Interpretation Comme nts RETICULOCYTE COUNT (test code = 1018) 1.9 % IRON BINDING CAPACITY AND IRON AND % [id number] 00:00:00* Test Item Value Reference Range Interpretation Comme nts IRON, SERUM (test code = 2222) 19 UG/DL UNSATURATED IBC (test code = 12889) 427 UG/DL CALC TOTAL IBC (test code = 7) 446 UG/DL CALC % IRON SAT (test code = 2079) 4 % VITAMIN [id number] 00:00:00* Test Item Value Reference Range Interpretation Comme nts VITAMIN B-12 (test code = 2840) 319 PG/ML
[2023-05-26 14:58] LABS: Hematocrit 35.3 % (36.0-45.0); Lymphocytes % 7.1 % (15.3-44.8); MCV 83.1 fL (80-100); MPV 8.5 fL (7.6-11.3); Platelets 227 thou/uL (152-406); RBC Red Blood Cell Count 4.25 M/uL (3.86-4.86)
[2023-05-26 15:13] LABS: Albumin 3.6 g/dL (3.4-5.0); Bilirubin Total 0.2 mg/dL (0.2-1.0); Potassium 4.5 mEq/L (3.5-5.1); Protein, Total 7.3 g/dL (6.4-8.2)
--- NOTE | 2023-05-26 15:43 | RAD REPORT ---
EXAM DESCRIPTION: RAD - Abdomen Acute Series - 05/26/2023 3:35 pm CLINICAL HISTORY: Abd pain;Constipation COMPARISON: No comparisons FINDINGS: Nonobstructive bowel gas pattern. No acute osseous abnormality.Visualized lungs are unrema rkable.No abnormal calcifications. Moderate formed stool burden in the ascending colon. Mild formed s tool burden in the rectum. IMPRESSION: Nonobstructive bowel gas pattern. Moderate ascending colon formed stool which could marck shilpi constipation.
--- NOTE | 2023-05-26 16:30 | ER ---
Nurse's Notes [facility] Name: Lina Gibson Age: 48 yrs Sex: Female : 1975 Arrival Date: 05/26/2023 Time: 12:13 Bed 7 Private MD: Diagnosis: Abdominal pain, Generalized;Constipation Presentation: 05/26 12:16 Coronavirus screen: Client denies travel out of the [place] in the last 14 days. At this ll1 time, the client does not indicate any symptoms associated with coronavirus-19. Ebola Screen: Patient denies travel to an Ebola-affected area in the 21 days before illness onset. Initial Sepsis Screen: Does the patient meet any 2 criteria? No. Patient's initial sepsis screen is negative. Does the patient have a suspected source of infection? Yes: Acute abdominal pain. Risk Assessment: Do you want to hurt yourself or someone else? Patient reports no desire to harm self or others. 12:16 Method Of Arrival: EMS ll1 12:16 Acuity: JOVANNI 3 ll1 12:17 Chief complaint: Patient states: Constipation EMS states: Toradol 15 MG IV and NS 150 ll1 ml bolus started. VSS. 17:54 Onset of symptoms was May 16, 2023. ll1 Triage Assessment: 12:23 General: Appears uncomfortable, Behavior is calm, cooperative, appropriate for age. ll1 Pain: Complains of pain in abdomen Pain currently is 8 out of 10 on a pain scale. Quality of pain is described as aching, pressure. Neuro: No deficits noted. Cardiovascular: No deficits noted. GI: Reports lower abdominal pain, upper abdominal pain, constipation, cramping. 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 - Social history:: Smoking status: Patient denies any tobacco usage or history of. Screenin:02 [facility] ED Fall Risk Assessment (Adult) Score/Fall Risk Level 0 - 2 = Low Risk ll1 Oriented to surroundings, Maintained a safe environment, Educated pt \T\ family on fall prevention, incl call for assistance when getting out of bed, Hourly rounding (assess needs \T\ fall precautionary measures) done. Abuse screen: Denies threats or abuse. Nutritional screening: No deficits noted. Tuberculosis screening: No symptoms or risk factors identified. Assessment: 12:46 Reassessment: No changes from previously documented assessment. Drinking hot prune, ll1 apple, and butter drink. Commode to BS. Rectal exam next with Dr. Shepherd. 13:16 Reassessment: No changes from previously documented assessment. Patient and/or family ll1 updated on plan of care and expected duration. Pain level reassessed. drank all the drink for constipation, no BM yet. 13:28 Reassessment: No changes from previously documented assessment. scant amount of liquid ll1 brown BM noted in toilet. Digital rectal exam by Dr. Shepherd. Tolerated well. 14:27 Reassessment: No changes from previously documented assessment. Patient and/or family ph updated on plan of care and expected duration. Pain level reassessed. 14:48 Reassessment: No changes from previously documented assessment. Patient and/or family ll1 updated on plan of care and expected duration. Pain level reassessed. Patient is alert, oriented x 3, equal unlabored respirations, skin warm/dry/pink. 15:17 Reassessment: No changes from previously documented assessment. Patient and/or family hb updated on plan of care and expected duration. Pain level reassessed. 16:29 Reassessment: No changes from previously documented assessment. Patient and/or family ll1 updated on plan of care and expected duration. Pain level reassessed. 2nd digital exam with Dr. Shepherd. Small amount of hard stool evacuated. Patient states symptoms have not improved. 17:00 Reassessment: No changes from previously documented assessment. Large BM in BS commode. ll1 Dr. Shepherd informed. 17:53 Reassessment: No changes from previously documented assessment. Patient and/or family ll1 updated on plan of care and expected duration. Pain level reassessed. Patient is alert, oriented x 3, equal unlabored respirations, skin warm/dry/pink. Patient states feeling better. 17:54 GI: Bowel sounds present X 4 quads. Abd is soft and non tender Abdomen is tender to ll1 palpation X 4 quads. Vital Signs: 12:17 BP 139 / 91; Pulse 104; Resp 18; Temp 98; Pulse Ox 100% ; Weight 70.31 kg; Height 5 ft. ll1 4 in. ; Pain 8/10; 13:01 BP 121 / 90; Pulse 110; Pulse Ox 100% ; ll1 14:48 BP 107 / 73; Pulse 101; Resp 20; Pulse Ox 100% ; ll1 17:00 BP 143 / 92; Pulse 93; Resp 16; Pulse Ox 100% ; ll1 12:17 Body Mass Index 26.61 (70.31 kg, 162.56 cm) ll1 12:17 Pain Scale: Adult ll1 ED Course: 12:16 Patient arrived in ED. ll1 12:16 Arm band placed on. ll1 12:17 Triage completed. ll1 12:20 Yoon Barron, NENA is Primary Nurse. ll1 12:20 Provided Education on: ER procedures and process. ll1 12:22 Cesario Shepherd MD is Attending Physician. kdr 13:02 Patient has correct armband on for positive identification. Bed in low position. Call ll1 light in reach. 14:43 Inserted saline lock: 22 gauge in left antecubital area, using aseptic technique. Blood ll1 collected. 14:43 IV discontinued, intact, bleeding controlled, No redness/swelling at site. Pressure ll1 dressing applied, 20 R AC from EMS, non functional. Catheter intact. 15:37 Abdomen Acute Series XRAY In Process Unspecified. EDMS 16:29 Justice Nelson MD is Hospitalizing Provider. kdr 17:53 IV discontinued, intact, bleeding controlled, No redness/swelling at site. Pressure ll1 dressing applied. 17:53 No provider procedures requiring assistance completed. ll1 Administered Medications: 14:43 Drug: Magnesium Citrate PO Liquid 300 ml PO once Route: PO; ll1 16:41 Follow up: Response: No adverse reaction ll1 14:48 Drug: Glycerin (Adult) AL Suppository 1 supp AL once Route: AL; ll1 16:41 Follow up: Response: No adverse reaction ll1 16:40 Drug: Fleet Enema AL 133 ml AL once {Note: 1/4 of fleets enema tolerated before she ll1 screamed for me to stop. .} Route: AL; 17:02 Follow up: Response: No adverse reaction ll1 16:57 Not Given (large BM before drinkingg): [id number] grams 30 ml PO once ll1 Medication: 13:02 VIS not applicable for this client. ll1 Outcome: 16:29 Decision to Hospitalize by Provider. kdr 17:36 Discharge ordered by . kdr 17:54 Discharged to home ambulatory, ll1 17:54 Condition: stable 17:54 Discharge instructions given to patient, Instructed on discharge instructions, follow up and referral plans. medication usage, Demonstrated understanding of instructions, follow-up care, medications, Prescriptions given X 2, 17:55 Patient left the ED. ll1 Signatures: Dispatcher [employer] EDMS Cesario Shepherd MD MD [facility] Jen Benson, RN RN Luisa Joyce RN RN Yoon Barron RN RN ll1 Corrections: (The following items were deleted from the chart) 12:20 12:17 Pulse Ox 100%; 70.31 kg; Height 5 ft. 4 in.; BMI: 26.6; Pain 8/10, Adult; ll1 ll1 17:01 16:29 Reassessment: No changes from previously documented assessment. Patient and/or ll1 family updated on plan of care and expected duration. Pain level reassessed. Patient states symptoms have not improved. ll1
--- NOTE | 2023-05-26 16:30 | EDPHYS ---
Physician Documentation [facility] Name: Lina Gibson Age: 48 yrs Sex: Female : 1975 Arrival Date: 05/26/2023 Time: 12:13 Bed 7 Private MD: ED Physician Cesario Shepherd HPI: 05/26 17:31 This 48 yrs old Female presents to ER via EMS with complaints of Constipation. kdr 17:26 Patient presents to the ED with severe constipation. Patient states she has not had a kdr bowel movement in 6 days. Patient appears very uncomfortable and is writhing in bed. Patient states that she has a history of constipation and that she from time to time will take a stool softener and laxative but has not taken any recently. Patient otherwise denies any specific precipitating cause that is new or unusual.. Onset: The symptoms/episode began/occurred gradually, 6 day(s) ago. Severity of symptoms: At their worst the symptoms were severe incapacitating just prior to arrival, in the emergency department the symptoms are unchanged. The patient has experienced similar episodes in the past, multiple times. The patient has not recently seen a physician. 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 - Social history:: Smoking status: Patient denies any tobacco usage or history of. ROS: 17:26 Constitutional: Negative for fever, chills, and weight loss, Eyes: Negative for injury, kdr pain, redness, and discharge, ENT: Negative for injury, pain, and discharge, Neck: Negative for injury, pain, and swelling, Cardiovascular: Negative for chest pain, palpitations, and edema, Respiratory: Negative for shortness of breath, cough, wheezing, and pleuritic chest pain, Back: Negative for injury and pain, : Negative for injury, bleeding, discharge, and swelling, MS/Extremity: Negative for injury and deformity, Skin: Negative for injury, rash, and discoloration, Neuro: Negative for headache, weakness, numbness, tingling, and seizure activity. Psych: Negative for depression, anxiety, suicide ideation, homicidal ideation, and hallucinations, Allergy/Immunology: Negative for hives, rash, and allergies, Endocrine: Negative for neck swelling, polydipsia, polyuria, polyphagia, and marked weight changes, Hematologic/Lymphatic: Negative for swollen nodes, abnormal bleeding, and unusual bruising, 17:26 Abdomen/GI: Positive for abdominal pain, constipation, Negative for black/tarry stool, rectal pain, rectal bleeding, bowel incontinence, Exam: 17:26 Constitutional: This is a well developed, well nourished patient who is awake, alert, kdr and in no acute distress. Head/Face: Normocephalic, atraumatic. Eyes: Pupils equal round and reactive to light, extra-ocular motions intact. Lids and lashes normal. Conjunctiva and sclera are non-icteric and not injected. Cornea within normal limits. Periorbital areas with no swelling, redness, or edema. Neck: Trachea midline, no thyromegaly or masses palpated, and no cervical lymphadenopathy. Supple, full range of motion without nuchal rigidity, or vertebral point tenderness. No Meningismus. Chest/axilla: Normal chest wall appearance and motion. Nontender with no deformity. No lesions are appreciated. Cardiovascular: Regular rate and rhythm with a normal S1 and S2. No gallops, murmurs, or rubs. Normal PMI, no JVD. No pulse deficits. Respiratory: Lungs have equal breath sounds bilaterally, clear to auscultation and percussion. No rales, rhonchi or wheezes noted. No increased work of breathing, no retractions or nasal flaring. Back: No spinal tenderness. No costovertebral tenderness. Full range of motion. Skin: Warm, dry with normal turgor. Normal color with no rashes, no lesions, and no evidence of cellulitis. MS/ Extremity: Pulses equal, no cyanosis. Neurovascular intact. Full, normal range of motion. Neuro: Awake and alert, GCS 15, oriented to person, place, time, and situation. Cranial nerves II-XII grossly intact. Motor strength 5/5 in all extremities. Sensory grossly intact. Cerebellar exam normal. Normal gait. Psych: Awake, alert, with orientation to person, place and time. Behavior, mood, and affect are within normal limits. 17:26 Abdomen/GI: Inspection: abdomen appears normal, Bowel sounds: active, diminished, in all quadrants, Palpation: soft, nontender, Rectal exam: rectal tone normal, hemorrhoid(s), external, without bleeding, without inflammation, without thrombosis, without pain, fecal impaction, that is severe, the exam is chaperoned by the nurse, Vital Signs: 12:17 BP 139 / 91; Pulse 104; Resp 18; Temp 98; Pulse Ox 100% ; Weight 70.31 kg; Height 5 ft. ll1 4 in. ; Pain 8/10; 13:01 BP 121 / 90; Pulse 110; Pulse Ox 100% ; ll1 14:48 BP 107 / 73; Pulse 101; Resp 20; Pulse Ox 100% ; ll1 17:00 BP 143 / 92; Pulse 93; Resp 16; Pulse Ox 100% ; ll1 12:17 Body Mass Index 26.61 (70.31 kg, 162.56 cm) ll1 12:17 Pain Scale: Adult ll1 Procedures: 17:26 Fecal disimpaction: digital disimpaction was performed, with a large amount of stool kdr expressed. The patient tolerated the intervention well, On the second attempt the patient was sufficiently primed to be able to deliver his significant stool load. MDM: 16:29 Patient medically screened. kdr 17:32 Data reviewed: vital signs, nurses notes. kdr 12 14:29 Order name: CBC with Diff; Complete Time: 15:21 kdr 12 14:29 Order name: CMP; Complete Time: 15:21 kdr 12 14:29 Order name: Abdomen Acute Series XRAY; Complete Time: 16:10 kdr 12 14:43 Order name: IV Start; Complete Time: 14:43 ll1 Administered Medications: 14:43 Drug: Magnesium Citrate PO Liquid 300 ml PO once Route: PO; ll1 16:41 Follow up: Response: No adverse reaction ll1 14:48 Drug: Glycerin (Adult) NC Suppository 1 supp NC once Route: NC; ll1 16:41 Follow up: Response: No adverse reaction ll1 16:40 Drug: Fleet Enema NC 133 ml NC once {Note: 1/4 of fleets enema tolerated before she ll1 screamed for me to stop. .} Route: NC; 17:02 Follow up: Response: No adverse reaction ll1 16:57 Not Given (large BM before drinkingg): [id number] grams 30 ml PO once ll1 Disposition Summary: 05/26/23 17:36 Discharge Ordered Notes: Location: Home(05/26/23 17:36) kdr Problem: an acute exacerbation(05/26/23 17:36) kdr Symptoms: have improved(05/26/23 17:36) kdr Condition: Stable(05/26/23 17:36) kdr Diagnosis - Abdominal pain, Generalized kdr - Constipation(05/26/23 17:36) kdr Followup: kdr - With: Private Physician - When: 2 - 3 days - Reason: If symptoms return, Further diagnostic work-up, Recheck today's complaints, Continuance of care, Re-evaluation by your physician Discharge Instructions: - Discharge Summary Sheet kdr - Constipation, Adult, [id number] kdr - Abdominal Pain, Adult, [id number] kdr Forms: - Medication Reconciliation Form kdr - Thank You Letter kdr - Patient Portal Instructions kdr - Leadership Thank You Letter kdr - Work release form ll1 Prescriptions: - Lactulose 10 gram/15 mL Oral Solution - take 30 milliliters ORAL route once daily; 300 milliliter; Refills: 0, Product kdr Selection Permitted - Pepcid 20 mg Oral Tablet - take 1 tablet ORAL route once daily for 10 days; 10 tablet; Refills: 0, Product kdr Selection Permitted Signatures: Dispatcher [employer] EDMS Cesario Shepherd MD MD kdr Jen Benson RN RN Yoon Barron RN RN ll1 Corrections: (The following items were deleted from the chart) 17:35 16:29 Observation kdr kdr 17:35 16:29 Justice Nelson kdr kdr 17:35 16:29 Telemetry/MedSurg (observation) kdr kdr 17:35 16:29 Fair kdr kdr 17:35 16:29 an acute exacerbation kdr kdr 17:35 16:29 are unchanged kdr kdr 17:35 16:29 Standard kdr kdr 17:35 16:29 kdr kdr 17:35 16:29 Constipation kdr kdr
[2023-05-26 19:11] VITALS: TEMP 98; O2SAT 100
[2023-05-26 19:18] VITALS: BP 143/92
== END ==
LOC: ER 12:13
DX: K59.00 Constipation, unspecified (principal)
CPT/HCPCS: 36415; 74022; 80053; 85025; 99284